=== PATIENT | male | born 1945 | race Caucasian/White ===

== ENCOUNTER 2016-12-11 11:30 | Inpatient (IN) | payer MEDICARE ==
--- NOTE | 2016-12-11 12:34 | PDOC ---
History of Present Illness - General Chief Complaint: Back Pain Stated Complaint: BACK PAIN Time Seen by Provider: 12/11/16 12:12 History Source: Patient Exam Limitations: No Limitations - History of Present Illness Initial Comments: 12/11/16 12:30 71-year-old male presents to the emergency room with complaints of abdominal distention, hematuria, and shortness of breath with exertion worsening over the past few weeks. Patient states went to Dr. Ramirez as a new patient last week was told to come to the ER today for further evaluation. Patient states has history of cirrhosis with hepatitis as per Dr. Fitzpatrick 7 years ago but did not follow-up since then and continues to drink approximately 3-8 beers on a daily basis. Patient also states is a smoker but denies history of drug use. Patient denies chest pain, shortness of breath at rest, orthopnea, diarrhea, rectal bleeding, dysuria, or rash. Patient does state mild leg edema but denies leg pain. Timing/Duration: getting worse Severity: moderate Associated Symptoms: reports: shortness of breath Past History - Past Medical History Allergies/Adverse Reactions: Allergies Allergy/AdvReac Type Severity Reaction Status Date / Time No Known Allergies Allergy Verified 12/11/16 11:40 Home Medications: Ambulatory Orders NK [No Known Home Medication] 12/11/16 Liver Disease: Yes (cirrhosis, hepatitis) Other medical history: denie - Immunization History Immunization Up to Date: No - Psycho/Social/Smoking Cessation Hx Anxiety: No Suicidal Ideation: No Smoking History: Current every day smoker Have you smoked in the past 12 months: Yes Number of Cigarettes Smoked Daily: 2 Information on smoking cessation initiated: No Hx Alcohol Use: Yes Drug/Substance Use Hx: No Substance Use Type: Alcohol Patient Lives Alone: No Lives with/in: spouse/SO Review of Systems - Review of Systems Able to Perform ROS?: Yes Constitutional: Yes: Loss of Appetite HEENTM: No: Symptoms Reported Respiratory: Yes: SOB with Exertion. No: Orthopnea, Wheezing, Hemoptysis Cardiac (ROS): No: Symptoms Reported ABD/GI: Yes: Abdominal Distended : Yes: Hematuria. No: Dysuria, Discharge, Flank Pain Musculoskeletal: Yes: Back Pain (lumbar) Integumentary: No: Symptoms Reported Neurological: No: Symptoms reported Endocrine: No: Symptoms Reported Hematologic/Lymphatic: No: Symptoms Reported *Physical Exam - Vital Signs Last Vital Signs Temp Pulse Resp BP Pulse Ox 97.8 F 95 H 20 144/87 97 12/11/16 11:40 12/11/16 11:40 12/11/16 11:40 12/11/16 11:40 12/11/16 11:40 - Physical Exam General Appearance: Yes: Nourished, Appropriately Dressed. No: Apparent Distress HEENT: positive: EOMI, TEJ, TMs Normal, Pharynx Normal. negative: Scleral Icterus (R), Scleral Icterus (L) Neck: positive: Normal Thyroid, Supple Respiratory/Chest: positive: Lungs Clear, Normal Breath Sounds. negative: Respiratory Distress, Accessory Muscle Use Cardiovascular: positive: Regular Rhythm, Regular Rate. negative: Murmur Gastrointestinal/Abdominal: positive: Normal Bowel Sounds, Soft, Distended (No fluid wave but rigid), Hernia (small umbilical). negative: Organomegaly ( unable to palpate secondary to ascites), Rebound, Tenderness Male Genitalia: positive: normal genitalia Musculoskeletal: positive: Vertebral Tenderness (bilateral paraspinous at L3 level). negative: CVA Tenderness Extremity: positive: Normal Capillary Refill, Pedal Edema (1+ bilateral) Integumentary: positive: Normal Color, Warm, Moist. negative: Jaundice Neurologic: positive: Motor Strength 5/5 (ambulatory) ED Treatment Course - LABORATORY CBC & Chemistry Diagram: 12/21/16 06:30 12/21/16 06:30 - RADIOLOGY Radiology Studies Ordered: Category Date Time Status ABDOMEN & PELVIS CT W/O CONTR [CT] Stat CT Scan 12/11/16 12:28 Ordered CHEST X-RAY PORTABLE* [RAD] Stat Radiology 12/11/16 12:21 Ordered PELVIC / BLADDER US [US] Stat Ultrasound 12/11/16 12:21 Ordered Medical Decision Making - Medical Decision Making 12/11/16 12:35 Patient with recommendations to come to the of for further evaluation. Patient with noted ascites and abdominal distention. On exam with complaints of hematuria and low back pain. Patient ordered for full work up including a bladder ultrasound, CT of the abdomen with po contrast hepatitis profile, and type and screen. 12/11/16 15:23 CT shows multiple with heterogenous activation lobulated contour and large amount of ascites consistent with liver cirrhosis. Ill-defined focal low attenuation density in the right hepatic lobe measuring 5.9 cm is very suspicious for mass versus malignancy primary versus secondary. Further evaluation is recommended. Multiple gallstones. Mild thickening of some of the small bowel loops likely due to surrounding large amount of ascites. Lipase was added. Patient ultrasound was limited due to completely empty bladder. Patient will receive fluids and go for repeat ultrasound to rule out etiology of hematuria Since CT was unable to rule out bladder mass/abnormality. 12/11/16 16:07 Laboratory Tests 12/11/16 12/11/16 12/11/16 12:47 12:47 12:47 WBC 3.5 L Hgb 15.4 Hct 45.7 MCV 99.5 H Plt Count 134 Neutrophils % 66.9 Lymphocytes % 17.3 Monocytes % 12.6 H INR Sodium 138 Potassium 3.8 Chloride 103 Carbon Dioxide 26 Anion Gap 9 BUN 12 Creatinine 0.7 Creat Clearance w eGFR > 60 Random Glucose 105 Calcium 9.0 Total Bilirubin 4.0 H AST 63 H ALT 46 Alkaline Phosphatase 276 H Creatine Kinase Troponin I Total Protein 7.7 Albumin 2.9 L Lipase 255 Urine Protein Urine Ketones Urine Nitrite Ur Leukocyte Esterase Urine RBC Urine WBC Blood Type A POSITIVE 12/11/16 12/11/16 12/11/16 12:47 12:47 12:47 WBC Hgb Hct MCV Plt Count Neutrophils % Lymphocytes % Monocytes % INR 1.36 H Sodium Potassium Chloride Carbon Dioxide Anion Gap BUN Creatinine Creat Clearance w eGFR Random Glucose Calcium Total Bilirubin AST ALT Alkaline Phosphatase Creatine Kinase 78 Troponin I < 0.02 Total Protein Albumin Lipase Urine Protein 1+ H Urine Ketones Trace H Urine Nitrite Negative Ur Leukocyte Esterase Negative Urine RBC 16 Urine WBC 2 Blood Type Case discussed with Dr. Turner medicine clinical education consultant for Dr. Ramirez who states admitted to [facility] and to consult Dr. Fitzpatrick from GI. 12/11/16 18:31 Bladder ultrasound shows no obvious intrinsic or extrinsic sonographic abnormality. There is mild prostate enlargement. There is a large amount of ascites is seen within the partially imaged lower pelvis. 12/11/16 18:[address] Fitzpatrick who will consult tomorrow *DC/Admit/Observation/Transfer Diagnosis at time of Disposition: Liver mass, Hematuria, Alcohol abuse Ascites Qualifiers: Ascites type: due to alcoholic hepatitis Qualified Code(s): K70.11 - Alcoholic hepatitis with ascites Cirrhosis Qualifiers: Hepatic cirrhosis type: alcoholic cirrhosis Ascites presence: with ascites Qualified Code(s): K70.31 - Alcoholic cirrhosis of liver with ascites - Discharge Dispostion Admit: Yes
[2016-12-11 13:20] LABS: BASOPHIL 0.8 % (0-2.0); EOSINOPHIL 2.4 % (0-4.5); MCH 33.5 pg (25.7-33.7); MCHC 33.7 g/dl (32.0-35.9); MEAN CELL VOLUME 99.5 fl (80-96); NEUTROPHILS 66.9 % (42.8-82.8); PLATELET COUNT 134 K/MM3 (134-434); WHITE BLOOD COUNT 3.5 K/mm3 (4.0-10.0)
[2016-12-11 13:34] LABS: INR 1.36 (0.82-1.09)
[2016-12-11 13:40] LABS: ALBUMIN 2.9 g/dl (3.4-5.0); ANION GAP 9 (8-16); CO2 26 mmol/L (21-32); CREATININE 0.7 mg/dL (0.7-1.3); GLUCOSE,RANDOM 105 mg/dL (74-106); SGOT/AST 63 U/L (15-37); SGPT/ALT 46 U/L (12-78); TOT PROT 7.7 g/dl (6.4-8.2)
[2016-12-11 13:41] LABS: ALK PHOS 276 U/L (45-117)
[2016-12-11 13:51] LABS: TROPONIN I < 0.02 ng/ml (0.00-0.05)
[2016-12-11 14:16] LABS: URINE APPEARANCE CLEAR; URINE BLOOD NEGATIVE (NEGATIVE); URINE COLOR AMBER; URINE GLUCOSE (UA) NEGATIVE (NEGATIVE); URINE KETONE TRACE (NEGATIVE); URINE LEUK ESTERASE NEGATIVE (NEGATIVE); URINE NITRITE NEGATIVE (NEGATIVE); URINE UROBILINOGEN 4.0 E.U/dl E.U./dl (0.2-1.0)
[2016-12-11 14:17] LABS: URINE PROTEIN 1+ (NEGATIVE)
[2016-12-11 14:20] LABS: CALCIUM OXALATE CRYSTALS RARE /hpf (NONE SEEN); URINE HYALINE CAST 3 /lpf; URINE MUCUS MANY; URINE RBC 16 /hpf (0-3); URINE WBC 2 /hpf (3-5)
--- NOTE | 2016-12-11 16:08 | EKG ---
Test Reason : Blood Pressure : / mmHG Vent. Rate : 079 BPM Atrial Rate : 079 BPM P-R Int : 000 ms QRS Dur : 086 ms QT Int : 394 ms P-R-T Axes : 065 -04 -15 degrees QTc Int : 451 ms SINUS RHYTHM WITH PREMATURE ATRIAL COMPLEXES NONSPECIFIC T WAVE ABNORMALITY ABNORMAL ECG WHEN COMPARED WITH ECG OF 15-MAY-2007 23:14, T WAVE VARIATION Confirmed by TJ ROLAND MD ([id number]) on 12/11/2016 4:08:18 PM Referred By: Confirmed By:TJ ROLAND MD
--- NOTE | 2016-12-11 20:19 | CONSULT ---
Consult Consult Specialty:: GI Referred by:: Dr Ramirez Reason for Consultation:: Ascites - History of Present Illness Chief Complaint: Ascites with respiratory distress History of Present Illness: 71 M with protracted history of ETOH abuse. His [id number] states he also has hep C. He is admitted now with tense ascites and a CT showing a liver mass that is likely HCC. - History Source History Provided By: Family Member ([id number] whi is fully bilingual) Limitations to Obtaining History: No Limitations - Alcohol/Substance Use Hx Alcohol Use: Yes (8 beers per day) - Smoking History Smoking history: Current every day smoker Have you smoked in the past 12 months: Yes Aproximately how many cigarettes per day: 2 Home Medications - Allergies Allergies/Adverse Reactions: Allergies Allergy/AdvReac Type Severity Reaction Status Date / Time No Known Allergies Allergy Verified 12/11/16 11:40 - Home Medications Home Medications: Ambulatory Orders NK [No Known Home Medication] 12/11/16 Physical Exam-GI Vital Signs: Vital Signs Temperature 97.8 F 12/11/16 11:40 Pulse Rate 84 12/11/16 20:12 Respiratory Rate 18 12/11/16 20:12 Blood Pressure 136/82 12/11/16 20:12 O2 Sat by Pulse Oximetry (%) 98 12/11/16 20:12 Constitutional: Yes: Cachectic HENT: Yes: Normocephalic Neck: Yes: Supple Cardiovascular: Yes: Pulse Irregular (APC's on ECG) Respiratory: Yes: CTA Bilaterally Gastrointestinal Inspection: Yes: Distention ...Auscultate: Yes: Normoactive Bowel Sounds ...Palpate: Yes: Firm/Rigid. 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 Needs paracentesis to relieve respiratory embarrassment. Needs w/u of liver lesion. Tri-phase MRI ordered as well as AFP Will need detox protocol Will need definitive medical management of his ESLD including B-panfilo (likely COPD in this current every-day smoker so may not be possible) , diuretic therapy and meds to prevent encephalopathy.
[2016-12-11] MEDS ORDERED: LACTULOSE 20 GM/30 ML UDC (FOR ORAL USE ONLY) PO PRN (20:31)
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
[2016-12-11 21:51] VITALS: BMI 26.5
[2016-12-11] MEDS ORDERED: HYDROmorphone HCL 2 MG TABLET PO PRN (22:05)
[2016-12-11] MEDS: SPIRONOLACTONE 25 MG TABLET (FP) PO SCH (22:18)
[2016-12-11] MEDS: LACTULOSE 20 GM/30 ML UDC (FOR ORAL USE ONLY) PO SCH (22:18)
[2016-12-11] MEDS: FUROSEMIDE 40 MG/4 ML INJECTABLE VIAL IVPUSH SCH (22:18)
[2016-12-11] MEDS: RIFAXIMIN 550 MG TABLET (UD) PO SCH (22:18)
[2016-12-11] MEDS: ALBUMIN HUMAN 25% 100 ML VIAL IVPB SCH ×3 (22:19→23:20)
[2016-12-12] MEDS: chlordiazePOXIDE HCL 25 MG CAPSULE PO SCH ×5 (00:24→22:00)
[2016-12-12 08:07] LABS: MCH 34.1 pg (25.7-33.7); MCHC 34.6 g/dl (32.0-35.9); MEAN CELL VOLUME 98.5 fl (80-96); MEAN PLT VOLUME 10.2 fl (7.5-11.1); PLATELET COUNT 94 K/MM3 (134-434); RDW 14.7 % (11.9-15.9); WHITE BLOOD COUNT 3.6 K/mm3 (4.0-10.0)
[2016-12-12 08:29] LABS: ALK PHOS 183 U/L (45-117); ANION GAP 9 (8-16); CALCIUM 7.9 mg/dL (8.5-10.1); CO2 26 mmol/L (21-32); CREATININE 0.6 mg/dL (0.7-1.3); GLUCOSE,RANDOM 81 mg/dL (74-106); SGOT/AST 39 U/L (15-37); SGPT/ALT 31 U/L (12-78); TOT PROT 6.1 g/dl (6.4-8.2)
[2016-12-12] MEDS: RIFAXIMIN 550 MG TABLET (UD) PO SCH ×2 (09:34→21:43)
[2016-12-12] MEDS: LACTULOSE 20 GM/30 ML UDC (FOR ORAL USE ONLY) PO SCH ×2 (09:34→21:43)
[2016-12-12] MEDS: SPIRONOLACTONE 25 MG TABLET (FP) PO SCH (09:34)
[2016-12-12] MEDS: FUROSEMIDE 40 MG/4 ML INJECTABLE VIAL IVPUSH SCH (09:35)
[2016-12-12 12:08] LABS: BILIRUBIN,DIRECT 0.3 mg/dL (0.0-0.2); BILIRUBIN,TOTAL 0.7 mg/dL (0.2-1.0); SGOT/AST 9 U/L (15-37); SGPT/ALT < 6 U/L (12-78)
[2016-12-12 14:29] LABS: PERITONEAL FLUID HISTIOCYTE 74 %; PERITONEAL FLUID LYMPHOCYTE 18 %; PERITONEAL FLUID MESOTHELIAL 8 %
[2016-12-12] MEDS ORDERED: chlordiazePOXIDE HCL 25 MG CAPSULE PO PRN (17:43)
--- NOTE | 2016-12-12 17:50 | CONSULT ---
Consult Detox [facility] Reason for Current Admission/Consult: alcohol withdrawal sx. Referred by:: Bunny Turner MD - History History of Present Illness: 71 y/o man with a long hx. of alcoholism is admitted with ascites. Pt. was diagnosed with cirrhosis of the liver 7 yrs ago but did not follow with medical care as suggested by primary care. His son & tell me that he shakes when he does not drinking. - History Source History Provided By: Patient Limitations to Obtaining History: No Limitations - Alcohol/Substance Use Hx Alcohol Use: Yes (8 beers per day) - Current Drug/Alcohol Use Alcohol Route: Oral Frequency: Daily Amount used: beer 1(6pack) Age of first use: 14 Date of Last Use: 12/11/16 - Past Medical History Gastrointestinal: Yes: Ascites Hepatobiliary: Yes: Cirrhosis, Hepatitis C Renal/: Yes: Hematuria - Significant Medical Findings: Laboratory Tests 12/11/16 12/11/16 12/11/16 12:47 12:47 12:47 WBC 3.5 L RBC 4.59 Hgb 15.4 Hct 45.7 MCV 99.5 H MCHC 33.7 RDW 15.0 Plt Count 134 MPV 10.0 Neutrophils % 66.9 Lymphocytes % 17.3 Monocytes % 12.6 H Eosinophils % 2.4 Basophils % 0.8 INR Sodium 138 Potassium 3.8 Chloride 103 Carbon Dioxide 26 Anion Gap 9 BUN 12 Creatinine 0.7 Creat Clearance w eGFR > 60 Random Glucose 105 Calcium 9.0 Total Bilirubin 4.0 H Direct Bilirubin AST 63 H ALT 46 Alkaline Phosphatase 276 H Ammonia Creatine Kinase Troponin I Total Protein 7.7 Albumin 2.9 L Lipase 255 Urine Color Urine Appearance Urine pH Ur Specific [place] Urine Protein Urine Glucose (UA) Urine Ketones Urine Blood Urine Nitrite Urine Bilirubin Urine Urobilinogen Ur Leukocyte Esterase Urine RBC Urine WBC Ur Epithelial Cells Calcium Oxalate Crystal Hyaline Casts Urine Mucus Peritoneal WBC Peritoneal RBC Periton Neutrophils Periton Lymphocytes Periton Mesothelial Periton Histiocytes Peritoneal Tot Protein Peritoneal Albumin Peritoneal LDH Peritoneal Glucose Peritoneal Amylase Peritoneal Cholesterol Hepatitis A IgM Ab Hep Bs Antigen Hep B Core IgM Ab Hepatitis C Antibody Blood Type A POSITIVE Antibody Screen Negative Spec Expiration Date 12/11/16 12/11/16 12/11/16 12:47 12:47 12:47 WBC RBC Hgb Hct MCV MCHC RDW Plt Count MPV Neutrophils % Lymphocytes % Monocytes % Eosinophils % Basophils % INR 1.36 H Sodium Potassium Chloride Carbon Dioxide Anion Gap BUN Creatinine Creat Clearance w eGFR Random Glucose Calcium Total Bilirubin Direct Bilirubin AST ALT Alkaline Phosphatase Ammonia 19.8 Creatine Kinase Troponin I Total Protein Albumin Lipase Urine Color Unique Urine Appearance Clear Urine pH 5.0 Ur Specific [place] 1.031 Urine Protein 1+ H Urine Glucose (UA) Negative Urine Ketones Trace H Urine Blood Negative Urine Nitrite Negative Urine Bilirubin 2.0 Urine Urobilinogen 4.0 e.u/dl Ur Leukocyte Esterase Negative Urine RBC 16 Urine WBC 2 Ur Epithelial Cells Rare Calcium Oxalate Crystal Rare Hyaline Casts 3 Urine Mucus Many Peritoneal WBC Peritoneal RBC Periton Neutrophils Periton Lymphocytes Periton Mesothelial Periton Histiocytes Peritoneal Tot Protein Peritoneal Albumin Peritoneal LDH Peritoneal Glucose Peritoneal Amylase Peritoneal Cholesterol Hepatitis A IgM Ab Hep Bs Antigen Hep B Core IgM Ab Hepatitis C Antibody Blood Type Antibody Screen Spec Expiration Date 12/11/16 12/11/16 12/12/16 12:47 12:47 06:30 WBC 3.6 L RBC 3.46 L D Hgb 11.8 D Hct 34.1 L D MCV 98.5 H MCHC 34.6 RDW 14.7 Plt Count 94 L D MPV 10.2 Neutrophils % Lymphocytes % Monocytes % Eosinophils % Basophils % INR Sodium Potassium Chloride Carbon Dioxide Anion Gap BUN Creatinine Creat Clearance w eGFR Random Glucose Calcium Total Bilirubin Direct Bilirubin AST ALT Alkaline Phosphatase Ammonia Creatine Kinase 78 Troponin I < 0.02 Total Protein Albumin Lipase Urine Color Urine Appearance Urine pH Ur Specific [place] Urine Protein Urine Glucose (UA) Urine Ketones Urine Blood Urine Nitrite Urine Bilirubin Urine Urobilinogen Ur Leukocyte Esterase Urine RBC Urine WBC Ur Epithelial Cells Calcium Oxalate Crystal Hyaline Casts Urine Mucus Peritoneal WBC Peritoneal RBC Periton Neutrophils Periton Lymphocytes Periton Mesothelial Periton Histiocytes Peritoneal Tot Protein Peritoneal Albumin Peritoneal LDH Peritoneal Glucose Peritoneal Amylase Peritoneal Cholesterol Hepatitis A IgM Ab Negative Hep Bs Antigen Negative Hep B Core IgM Ab Negative Hepatitis C Antibody 0.1 Blood Type Antibody Screen Spec Expiration Date 12/12/16 12/12/16 12/12/16 06:30 11:00 11:00 WBC RBC Hgb Hct MCV MCHC RDW Plt Count MPV Neutrophils % Lymphocytes % Monocytes % Eosinophils % Basophils % INR Sodium 140 Potassium 3.6 Chloride 105 Carbon Dioxide 26 Anion Gap 9 BUN 10 Creatinine 0.6 L Creat Clearance w eGFR > 60 Random Glucose 81 D Calcium 7.9 L Total Bilirubin 4.0 H 0.7 D Direct Bilirubin 0.3 H AST 39 H D 9 L D ALT 31 D < 6 L D Alkaline Phosphatase 183 H D Ammonia Creatine Kinase Troponin I Total Protein 6.1 L D Albumin 3.0 L Lipase Urine Color Urine Appearance Urine pH Ur Specific [place] Urine Protein Urine Glucose (UA) Urine Ketones Urine Blood Urine Nitrite Urine Bilirubin Urine Urobilinogen Ur Leukocyte Esterase Urine RBC Urine WBC Ur Epithelial Cells Calcium Oxalate Crystal Hyaline Casts Urine Mucus Peritoneal WBC 193 Peritoneal RBC 640 Periton Neutrophils Y Periton Lymphocytes 18 Periton Mesothelial 8 Periton Histiocytes 74 Peritoneal Tot Protein 1 Peritoneal Albumin 1 Peritoneal LDH 34 Peritoneal Glucose 102 Peritoneal Amylase 18 Peritoneal Cholesterol < 50 Hepatitis A IgM Ab Hep Bs Antigen Hep B Core IgM Ab Hepatitis C Antibody Blood Type Antibody Screen Spec Expiration Date labs noted CIWA Score - CIWA Score Nausea/Vomitin Muscle Tremors: 4-Moderate,w/Arms Extend Anxiety: 3 Agitation: 3 Paroxysmal Sweats: 3 Orientation: 0-Oriented Tacttile Disturbances: 1-Very Mild Itch/Numbness Auditory Disturbances: 0-None Visual Disturbances: 0-None Headache: 0-None Present CIWA-Ar Total Score: 16 Assessment Plan - Diagnosis (1) Ascites Status: Acute Qualifiers: Ascites type: due to alcoholic hepatitis Qualified Code(s): K70.11 - Alcoholic hepatitis with ascites (2) Cirrhosis Status: Acute Qualifiers: Hepatic cirrhosis type: alcoholic cirrhosis Ascites presence: with ascites Qualified Code(s): K70.31 - Alcoholic cirrhosis of liver with ascites (3) Alcohol dependence with uncomplicated withdrawal Status: Acute - Plan Plan: Detox with librium and regular F/U with Dr. Fitzpatrick - Medication Detox Regimen/Protocol: Librium
--- NOTE | 2016-12-12 21:18 | PN ---
Progress Note (short form) - Note Progress Note: hep c cirrhosis acute decompensated ascites alcoholic liver disease detox consult appreciated Current Medications Chlordiazepoxide HCl (Librium -) 25 mg PO Q4H PRN PRN Reason: WITHDRAWAL(CONT SUBST) Stop: 12/15/16 17:42 Chlordiazepoxide HCl (Librium -) 25 mg PO [id number] [facility] Stop: 12/13/16 17:01 Chlordiazepoxide HCl (Librium -) 20 mg PO [id number] [facility] Stop: 12/14/16 17:01 Chlordiazepoxide HCl (Librium -) 15 mg PO [id number] [facility] Stop: 12/15/16 17:01 Furosemide (Lasix Injection -) 40 mg IVPUSH DAILY [facility] Last Admin: 12/12/16 09:35 Dose: 40 mg Hydromorphone HCl (Dilaudid -) 2 mg PO Q8H PRN PRN Reason: PAIN Lactulose (Cephulac (Oral Use)) 20 gm PO BID [facility] Last Admin: 12/12/16 09:34 Dose: 20 gm Rifaximin (Xifaxan -) 550 mg PO BID [facility] Last Admin: 12/12/16 09:34 Dose: 550 mg Spironolactone (Aldactone -) 50 mg PO DAILY [facility] Last Admin: 12/12/16 09:34 Dose: 50 mg Last Vital Signs Temp Pulse Resp BP Pulse Ox 98.7 F 82 20 107/68 96 12/12/16 17:29 12/12/16 17:29 12/12/16 17:29 12/12/16 17:29 12/12/16 09:00 lungs clear heart reg rate and rhythm abd soft nontender ext no edema CBC, BMP 12/12/16 06:30 12/12/16 06:30 Abnormal Lab Results 12/12/16 12/12/16 12/12/16 06:30 06:30 11:00 WBC 3.6 L RBC 3.46 L D Hct 34.1 L D MCV 98.5 H Plt Count 94 L D Creatinine 0.6 L Calcium 7.9 L Total Bilirubin 4.0 H Direct Bilirubin 0.3 H AST 39 H D 9 L D ALT < 6 L D Alkaline Phosphatase 183 H D Total Protein 6.1 L D Albumin 3.0 L IMP- r/o hepatoma cea pending mri pending Plan- await remainder of w/u pain meds prn detox
[2016-12-13] MEDS: chlordiazePOXIDE HCL 25 MG CAPSULE PO SCH ×3 (05:00→16:59)
[2016-12-13] MEDS: LACTULOSE 20 GM/30 ML UDC (FOR ORAL USE ONLY) PO SCH ×2 (09:25→22:09)
[2016-12-13] MEDS: RIFAXIMIN 550 MG TABLET (UD) PO SCH ×2 (09:25→22:10)
[2016-12-13] MEDS: FUROSEMIDE 40 MG/4 ML INJECTABLE VIAL IVPUSH SCH (09:58)
[2016-12-13] MEDS: SPIRONOLACTONE 25 MG TABLET (FP) PO SCH (09:58)
--- NOTE | 2016-12-13 13:19 | PATH ---
Cytology Non-Gynecological Report Patient Name: KEYLA CARREON [facility]. Rec. #: [id number] /Age/Gender: 1945 (Age: 71) / M Account: [id number] Location: [facility] MED/SURG Taken: 12/12/2016 Received: 12/12/2016 Reported: 12/13/2016 Physicians: Lois Duenas M.D. Specimen(s) Received A: ABDOMINAL FLUID RLQ IN 50% ALCOHOL B: ABDOMINAL FLUID RLQ FRESH Clinical History Ascites Final Diagnosis A,B. ABDOMINAL FLUID, RLQ, PARACENTESIS: SATISFACTORY FOR EVALUATION. NO MALIGNANT CELLS IDENTIFIED. REACTIVE MESOTHELIAL CELLS, HISTIOCYTES AND LYMPHOCYTES. Electronically Signed Husam Black M.D. Gross Description A. Received is a 50 cc of yellow fluid in 50% alcohol. One cytofunnel slide and one cell block are made. B. Received is 7000 cc of yellow fluid fresh. One cytofunnel slide and one cell block are made.
--- NOTE | 2016-12-13 21:36 | PN ---
Progress Note (short form) - Note Progress Note: s/p low bp- lasix held hep c cirrhosis acute decompensated ascites alcoholic liver disease gross hematuria and left flank pain detox consult appreciated Current Medications Chlordiazepoxide HCl (Librium -) 25 mg PO Q4H PRN PRN Reason: WITHDRAWAL(CONT SUBST) Stop: 12/15/16 17:42 Chlordiazepoxide HCl (Librium -) 20 mg PO [id number] [facility] Stop: 12/14/16 17:01 Chlordiazepoxide HCl (Librium -) 15 mg PO [id number] [facility] Stop: 12/15/16 17:01 Furosemide (Lasix Injection -) 40 mg IVPUSH DAILY [facility] Last Admin: 12/13/16 09:58 Dose: Not Given Hydromorphone HCl (Dilaudid -) 2 mg PO Q8H PRN PRN Reason: PAIN Lactulose (Cephulac (Oral Use)) 20 gm PO BID [facility] Last Admin: 12/13/16 09:25 Dose: 20 gm Rifaximin (Xifaxan -) 550 mg PO BID [facility] Last Admin: 12/13/16 09:25 Dose: 550 mg Spironolactone (Aldactone -) 50 mg PO DAILY [facility] Last Admin: 12/13/16 09:58 Dose: Not Given Last Vital Signs Temp Pulse Resp BP Pulse Ox 97.8 F 75 18 104/64 95 12/13/16 18:00 12/13/16 18:00 12/13/16 18:00 12/13/16 18:00 12/13/16 09:00 lungs clear heart reg rate and rhythm abd soft nontender ext no edema CBC, BMP 12/12/16 06:30 12/12/16 06:30 Abnormal Lab Results 12/12/16 12/12/16 12/12/16 06:30 06:30 11:00 WBC 3.6 L RBC 3.46 L D Hct 34.1 L D MCV 98.5 H Plt Count 94 L D Creatinine 0.6 L Calcium 7.9 L Total Bilirubin 4.0 H Direct Bilirubin 0.3 H AST 39 H D 9 L D ALT < 6 L D Alkaline Phosphatase 183 H D Total Protein 6.1 L D Albumin 3.0 L IMP- acute increased ascites underlying severe liver cirrhosis multiple masses right lobe of liver by mri afp 2.1 ! probable hepatocellular ca Plan- GI f/u re: biopsy of hepatic masses and post discharge planning for further management pain meds prn detox
[2016-12-13] MEDS: chlordiazePOXIDE 5 MG CAPSULE PO SCH (22:09)
[2016-12-14] MEDS: chlordiazePOXIDE 5 MG CAPSULE PO SCH ×3 (05:21→17:34)
[2016-12-14 08:16] LABS: MCHC 34.3 g/dl (32.0-35.9); MEAN CELL VOLUME 99.1 fl (80-96); MEAN PLT VOLUME 10.2 fl (7.5-11.1); PLATELET COUNT 107 K/MM3 (134-434); RDW 15.2 % (11.9-15.9); WHITE BLOOD COUNT 5.1 K/mm3 (4.0-10.0)
[2016-12-14 08:27] LABS: INR 1.5 (0.82-1.09); PROTHROMBIN TIME (PATIENT) 16.6 SEC (9.98-11.88)
[2016-12-14 08:42] LABS: ALBUMIN 2.5 g/dl (3.4-5.0); ANION GAP 6 (8-16); CALCIUM 8.6 mg/dL (8.5-10.1); CO2 27 mmol/L (21-32); CREATININE 0.6 mg/dL (0.7-1.3); GLUCOSE,RANDOM 100 mg/dL (74-106); SGOT/AST 50 U/L (15-37); SGPT/ALT 38 U/L (12-78)
[2016-12-14 08:44] LABS: ALK PHOS 194 U/L (45-117); BILIRUBIN,TOTAL 1.8 mg/dL (0.2-1.0); TOT PROT 5.9 g/dl (6.4-8.2)
[2016-12-14] MEDS: LACTULOSE 20 GM/30 ML UDC (FOR ORAL USE ONLY) PO SCH ×2 (09:52→21:30)
[2016-12-14] MEDS: RIFAXIMIN 550 MG TABLET (UD) PO SCH ×2 (09:53→21:30)
[2016-12-14] MEDS: SPIRONOLACTONE 25 MG TABLET (FP) PO SCH (09:53)
[2016-12-14] MEDS: FUROSEMIDE 40 MG/4 ML INJECTABLE VIAL IVPUSH SCH (09:54)
--- NOTE | 2016-12-14 14:03 | PN ---
Progress Note (short form) - Note Progress Note: hep c cirrhosis acute decompensated ascites alcoholic liver disease detox consult appreciated Current Medications Chlordiazepoxide HCl (Librium -) 25 mg PO Q4H PRN PRN Reason: WITHDRAWAL(CONT SUBST) Stop: 12/15/16 17:42 Chlordiazepoxide HCl (Librium -) 20 mg PO [id number] [facility] Stop: 12/14/16 17:01 Last Admin: 12/14/16 10:48 Dose: 20 mg Chlordiazepoxide HCl (Librium -) 15 mg PO [id number] [facility] Stop: 12/15/16 17:01 Furosemide (Lasix Injection -) 40 mg IVPUSH DAILY [facility] Last Admin: 12/14/16 09:54 Dose: 40 mg Hydromorphone HCl (Dilaudid -) 2 mg PO Q8H PRN PRN Reason: PAIN Lactulose (Cephulac (Oral Use)) 20 gm PO BID [facility] Last Admin: 12/14/16 09:52 Dose: 20 gm Rifaximin (Xifaxan -) 550 mg PO BID [facility] Last Admin: 12/14/16 09:53 Dose: 550 mg Spironolactone (Aldactone -) 50 mg PO DAILY [facility] Last Admin: 12/14/16 09:53 Dose: 50 mg Last Vital Signs Temp Pulse Resp BP Pulse Ox 98.1 F 89 21 110/73 98 12/14/16 08:23 12/14/16 13:20 12/14/16 13:20 12/14/16 13:20 12/14/16 13:20 lungs clear heart reg rate and rhythm abd soft nontender ext no edema CBC, BMP 12/14/16 07:25 12/14/16 07:25 Abnormal Lab Results 12/14/16 12/14/16 12/14/16 07:25 07:25 07:25 RBC 3.90 L MCV 99.1 H Plt Count 107 L INR 1.50 H Anion Gap 6 L Creatinine 0.6 L Total Bilirubin 1.8 H D AST 50 H D Alkaline Phosphatase 194 H Total Protein 5.9 L Albumin 2.5 L IMP- alcoholic cirrhosis ascites liver masses on mri +lymphadenopathy Plan- await gi f/u pain meds prn continue detox
--- NOTE | 2016-12-14 14:49 | CONSULT ---
Consult Consult Specialty:: Oncology-Hematology Referred by:: Dr. Bunny Turner Reason for Consultation:: Ascites and liver mass - History Source History Provided By: Patient Limitations to Obtaining History: Other (Daughter -ADA interpreted) - Past Medical History Gastrointestinal: Yes: Ascites Hepatobiliary: Yes: Cirrhosis, Hepatitis C Renal/: Yes: Hematuria Musculoskeletal: Yes: Chronic low back pain - Alcohol/Substance Use Hx Alcohol Use: Yes (variable beer from 2- 10+ daily) History of Substance Use: reports: None - Smoking History Smoking history: Current every day smoker Have you smoked in the past 12 months: Yes Aproximately how many cigarettes per day: 2 - Social History Usual Living Arrangement: With Spouse 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 Loss Eyes: denies: Blurred Vision, Double Vision HENT: denies: No Symptoms, Difficult Swallowing, Nasal Congestion Neck: denies: Swollen Glands, Tenderness Cardiovascular: denies: Palpitations, Shortness of Breath Respiratory: denies: SOB, SOB on Exertion, Wheezing Gastrointestinal: reports: Abdominal Pain. denies: Constipation, Diarrhea, Dysphagia, Melena, Nausea, Rectal Bleeding, Vomiting Genitourinary: reports: Burning Musculoskeletal: reports: Back Pain Integumentary: denies: Bruising, Eczema, Rash Neurological: reports: No Symptoms Endocrine: reports: No Symptoms Hematology/Lymphatic: denies: Easily Bruised, Excessive Bleeding, Swollen Glands Psychiatric: reports: No Symptoms Physical Exam Vital Signs: Vital Signs Temperature 98.1 F 12/14/16 08:23 Pulse Rate 86 12/14/16 13:35 Respiratory Rate 19 12/14/16 13:35 Blood Pressure 112/79 12/14/16 13:35 O2 Sat by Pulse Oximetry (%) 98 12/14/16 13:35 Constitutional: Yes: No Distress Eyes: Yes: PERRL. No: Ptosis HENT: Yes: Atraumatic, Normocephalic. No: Epistaxis, Rhinnorhea, Tonsillar Exudate Neck: Yes: Supple, Trachea Midline. No: Lymphadenopathy, Tenderness, Thyromegaly Cardiovascular: Yes: Regular Rate and Rhythm Respiratory: Yes: Diminished, Rales Gastrointestinal: Yes: Ascites Renal/: Yes: Other (Serrano catheter , uncircumcised male; testes descended). No: CVA Tenderness - Left, CVA Tenderness - Right Musculoskeletal: Yes: Back Pain Extremities: No: Calf Tenderness, Cool, Cyanosis Edema: No Integumentary: No: Erythema, Jaundice, Rash Neurological: Yes: WNL ...Motor Strength: WNL Psychiatric: Yes: WNL Labs: CBC, BMP 12/14/16 07:25 12/14/16 07:25 Imaging - Results Ultrasound: Report Reviewed MRI: Report Reviewed Problem List - Problems (1) Liver mass Code(s): R16.0 - HEPATOMEGALY, NOT ELSEWHERE CLASSIFIED (2) Hematuria Code(s): R31.9 - HEMATURIA, UNSPECIFIED (3) Cirrhosis Code(s): K74.60 - UNSPECIFIED CIRRHOSIS OF LIVER Qualifiers: Hepatic cirrhosis type: alcoholic cirrhosis Ascites presence: with ascites Qualified Code(s): K70.31 - Alcoholic cirrhosis of liver with ascites (4) Ascites Code(s): R18.8 - OTHER ASCITES Qualifiers: Ascites type: due to alcoholic hepatitis Qualified Code(s): K70.11 - Alcoholic hepatitis with ascites (5) Alcohol abuse Code(s): F10.10 - ALCOHOL ABUSE, UNCOMPLICATED (6) Hepatitis C Code(s): B19.20 - UNSPECIFIED VIRAL HEPATITIS C WITHOUT HEPATIC COMA Assessment/Plan Conglomerate mass on MRI suspicious for HCC. Past history of hepatitis C without prior therapy. Beer drinker of 2-10+ cans per day x years. Contracted irregular liver with splenomegaly compatible with cirrhosis and portal hypertension seen on imaging. AFP pending. To have drainage of ascites and then liver biopsy. Has serrano catheter with dysuria. For C & S. Has leukopenia -?? secondary to portal hypertension with hypersplenism or direct toxic effect of alcohol . For screening tests.
[2016-12-14] MEDS ORDERED: PT OWN MED DRAWER 7, Y5N ONE (18:28)
[2016-12-15] MEDS: chlordiazePOXIDE 5 MG CAPSULE PO SCH ×4 (02:10→17:12)
[2016-12-15 07:45] LABS: BASOPHIL 0.5 % (0-2.0); EOSINOPHIL 5.9 % (0-4.5); MCH 33.9 pg (25.7-33.7); MCHC 34.2 g/dl (32.0-35.9); MEAN CELL VOLUME 98.9 fl (80-96); NEUTROPHILS 61.6 % (42.8-82.8); PLATELET COUNT 100 K/MM3 (134-434); RDW 14.9 % (11.9-15.9)
[2016-12-15 08:15] LABS: INR 1.47 (0.82-1.09); PROTHROMBIN TIME (PATIENT) 16.3 SEC (9.98-11.88)
[2016-12-15 08:19] LABS: ACTIVATED PTT 36.7 SECONDS (26.9-34.4)
[2016-12-15 08:34] LABS: CALCIUM 7.6 mg/dL (8.5-10.1); CREATININE 0.6 mg/dL (0.7-1.3); SGOT/AST 55 U/L (15-37); SGPT/ALT 43 U/L (12-78)
[2016-12-15 08:36] LABS: ALBUMIN 2.4 g/dl (3.4-5.0); ANION GAP 8 (8-16); CO2 29 mmol/L (21-32); GLUCOSE,RANDOM 92 mg/dL (74-106)
[2016-12-15 08:43] LABS: ALK PHOS 218 U/L (45-117); THYROID STIMULATING HORMONE 1.41 uIU/ml (0.358-3.74)
[2016-12-15] MEDS: SPIRONOLACTONE 25 MG TABLET (FP) PO SCH (09:19)
[2016-12-15] MEDS: RIFAXIMIN 550 MG TABLET (UD) PO SCH ×2 (09:19→22:13)
[2016-12-15] MEDS: LACTULOSE 20 GM/30 ML UDC (FOR ORAL USE ONLY) PO SCH ×2 (09:19→22:13)
[2016-12-15] MEDS: FUROSEMIDE 40 MG/4 ML INJECTABLE VIAL IVPUSH SCH (09:19)
--- NOTE | 2016-12-15 13:11 | PN ---
GI Progress Note Subjective: d/w with Dr Rodas, s/p paracentesis prior to liver biopsy, s/p removal of 7 liters - Objective Vital Signs: Vital Signs Temperature 98.7 F 12/15/16 09:00 Pulse Rate 77 12/15/16 09:00 Respiratory Rate 20 12/15/16 09:00 Blood Pressure 88/58 12/15/16 09:00 O2 Sat by Pulse Oximetry (%) 98 12/15/16 09:00 Constitutional: Well Nourished Eyes: Yes: Conjunctiva Clear HENT: Yes: Atraumatic Neck: Yes: Trachea Midline Cardiovascular: Yes: Regular Rate and Rhythm ...Palpate: Yes: Soft. No: Firm/Rigid, Guarding, Hepatomegaly, Mass, Pulsatile Mass, Splenomegaly, Tenderness Labs: CBC, BMP 12/15/16 06:30 12/15/16 06:30 INR, PTT INR 1.47 (0.82-1.09) H 12/15/16 06:30 Fibrinogen 214.0 mg/dL (238-498) L 12/15/16 06:30 Problem List - Problems (1) Liver mass Assessment/Plan: r/o hepatoma Code(s): R16.0 - HEPATOMEGALY, NOT ELSEWHERE CLASSIFIED (2) Ascites Assessment/Plan: s/p large volume paracentesis R> will need 6 bottles of albumin (12.5 grams) Code(s): R18.8 - OTHER ASCITES Qualifiers: Ascites type: due to alcoholic hepatitis Qualified Code(s): K70.11 - Alcoholic hepatitis with ascites
[2016-12-15] MEDS: ALBUMIN HUMAN 25% 100 ML VIAL IVPB SCH ×4 (14:35→16:45)
--- NOTE | 2016-12-15 14:52 | PN ---
Progress Note (short form) - Note Progress Note: Oncology follow-up note Patient seen and examined at bedside today. He is failry comfortable, able to answer my questions in [place]. He says he has mild pain at the site of the peritoneal catheter insertion which is mild. Last Vital Signs Temp Pulse Resp BP Pulse Ox 98.7 F 77 20 88/58 98 12/15/16 09:00 12/15/16 09:00 12/15/16 09:00 12/15/16 09:00 12/15/16 09:00 Physical Exam PERRLA, EOMI, cachectic CTA (BL) No m/g/r Soft , mildly distended abdomen, peritoneal catheter in RMQ draining clear yellow fluid No c/c/e Nonfocal neuro exam Labs CBC, BMP 12/15/16 06:30 12/15/16 06:30 Current Medications Generic Name Dose Route Start Last Admin Trade Name Freq PRN Reason Stop Dose Admin Chlordiazepoxide HCl 25 mg 12/12/16 17:43 Librium - PO 12/15/16 17:42 Q4H PRN WITHDRAWAL(CONT SUBST) Chlordiazepoxide HCl 15 mg 12/14/16 23:00 12/15/16 10:58 Librium - PO 12/15/16 17:01 15 mg [id number] [facility] Administration Furosemide 40 mg 12/11/16 20:45 12/15/16 09:19 Lasix Injection - IVPUSH 40 mg DAILY [facility] Administration Lactulose 20 gm 12/11/16 20:38 12/15/16 09:19 Cephulac (Oral Use) PO 20 gm BID [facility] Administration Rifaximin 550 mg 12/11/16 22:00 12/15/16 09:19 Xifaxan - PO 550 mg BID [facility] Administration Spironolactone 50 mg 12/11/16 20:45 12/15/16 09:19 Aldactone - PO 50 mg DAILY [facility] Administration A/P : 71 y/o male with Hx of heavy drinking, hepatitis C without prior treatment and a large conglomerate mass in right liver suspicious for HCC. AFP however was not elevated. -Has a peritoneal catheter that continues to drain clear yellow fluid -plan for liver biopsy on Saturday - 12/17, discussed with RN- to keep patient NPO after midnight on saturday night and to administer FFP and 1 unit platelets early Saturday morning. -discussed plan with family at bedside that are on board -need ID inputs on treatment and Mx of Hep C (can be done outpatient also) -continue diuretics, lactulose and rifaximin for treatment of cirrhosis and encephalopathy -Supportive care
--- NOTE | 2016-12-15 21:29 | PN ---
Progress Note (short form) - Note Progress Note: waiting for liver bx on saturday after drainage of ascites hep c cirrhosis acute decompensated ascites alcoholic liver disease detox consult appreciated Current Medications Furosemide (Lasix Injection -) 40 mg IVPUSH DAILY [facility] Last Admin: 12/15/16 09:19 Dose: 40 mg Lactulose (Cephulac (Oral Use)) 20 gm PO BID [facility] Last Admin: 12/15/16 09:19 Dose: 20 gm Rifaximin (Xifaxan -) 550 mg PO BID [facility] Last Admin: 12/15/16 09:19 Dose: 550 mg Spironolactone (Aldactone -) 50 mg PO DAILY [facility] Last Admin: 12/15/16 09:19 Dose: 50 mg Last Vital Signs Temp Pulse Resp BP Pulse Ox 98.5 F 82 20 91/51 98 12/15/16 17:24 12/15/16 17:24 12/15/16 17:24 12/15/16 17:24 12/15/16 09:00 lungs clear heart reg rate and rhythm abd soft nontender ext no edema CBC, BMP 12/15/16 06:30 12/15/16 06:30 IMP- alcoholic cirrhosis ascites liver masses on mri +lymphadenopathy Plan- pain meds prn continue detox
[2016-12-16] MEDS: SPIRONOLACTONE 25 MG TABLET (FP) PO SCH (09:03)
[2016-12-16] MEDS: LACTULOSE 20 GM/30 ML UDC (FOR ORAL USE ONLY) PO SCH ×2 (09:03→21:50)
[2016-12-16] MEDS: FUROSEMIDE 40 MG/4 ML INJECTABLE VIAL IVPUSH SCH (09:03)
[2016-12-16] MEDS: RIFAXIMIN 550 MG TABLET (UD) PO SCH ×2 (09:03→21:50)
--- NOTE | 2016-12-16 12:15 | PN ---
Progress Note (short form) - Note Progress Note: Oncology Follow-up Note S: Patient sleeping comfortably when visited today. He has mild pain at the site of the peritoneal catheter but no other complaints. Last Vital Signs Temp Pulse Resp BP Pulse Ox 98.1 F 64 20 97/60 98 12/16/16 06:59 12/16/16 06:59 12/16/16 11:00 12/16/16 06:59 12/16/16 11:00 Physical Exam PERRLA, EOMI, cachectic CTA (BL) No m/g/r Soft , mildly distended abdomen, peritoneal catheter in RMQ draining clear yellow fluid No c/c/e Nonfocal neuro exam Labs CBC, BMP 12/15/16 06:30 12/15/16 06:30 Current Medications Generic Name Dose Route Start Last Admin Trade Name Freq PRN Reason Stop Dose Admin Furosemide 40 mg 12/11/16 20:45 12/16/16 09:03 Lasix Injection - IVPUSH 40 mg DAILY [facility] Administration Lactulose 20 gm 12/11/16 20:38 12/16/16 09:03 Cephulac (Oral Use) PO 20 gm BID [facility] Administration Rifaximin 550 mg 12/11/16 22:00 12/16/16 09:03 Xifaxan - PO 550 mg BID [facility] Administration Spironolactone 50 mg 12/11/16 20:45 12/16/16 09:03 Aldactone - PO 50 mg DAILY [facility] Administration A/P : 71 y/o male with Hx of heavy drinking, hepatitis C without prior treatment and a large conglomerate mass in right liver suspicious for HCC. AFP however was not elevated. -Has a peritoneal catheter that continues to drain clear yellow fluid -plan for liver biopsy on Saturday - 12/17, discussed with RN- to keep patient NPO after midnight on saturday night and to administer FFP and 1 unit platelets early Saturday morning. FFP and platelets ordered by me today and discussed with . -discussed plan with family at bedside that are on board -need ID inputs on treatment and Mx of Hep C prior to initiation of chemotherapy -continue diuretics, lactulose and rifaximin for treatment of cirrhosis and encephalopathy -Supportive care
--- NOTE | 2016-12-16 20:27 | PN ---
Progress Note (short form) - Note Progress Note: discussed with oncology- recommends ID consult for eval of risks of untreated hep c when and if he starts chemo waiting for liver bx on saturday after drainage of ascites alcoholic and hep c cirrhosis acute decompensated ascites alcoholic liver disease detox consult appreciated lungs clear heart reg rate and rhythm abd soft nontender ext no edema CBC, BMP 12/15/16 06:30 12/15/16 06:30 IMP- alcoholic cirrhosis ascites liver masses on mri +lymphadenopathy h/o hep c never treated Plan- biopsy in am pain meds prn continue detox
[2016-12-17 07:20] LABS: INR 1.48 (0.82-1.09); PROTHROMBIN TIME (PATIENT) 16.4 SEC (9.98-11.88)
[2016-12-17 07:24] LABS: MCH 34.2 pg (25.7-33.7); MCHC 34.8 g/dl (32.0-35.9); MEAN CELL VOLUME 98.4 fl (80-96); MEAN PLT VOLUME 10.7 fl (7.5-11.1); PLATELET COUNT 100 K/MM3 (134-434); RDW 14.8 % (11.9-15.9); WHITE BLOOD COUNT 5.1 K/mm3 (4.0-10.0)
[2016-12-17 08:28] LABS: ALBUMIN 3.4 g/dl (3.4-5.0); ALK PHOS 194 U/L (45-117); ANION GAP 12 (8-16); BILIRUBIN,TOTAL 3.3 mg/dL (0.2-1.0); CALCIUM 9.2 mg/dL (8.5-10.1); CO2 26 mmol/L (21-32); CREATININE 0.8 mg/dL (0.7-1.3); GLUCOSE,RANDOM 100 mg/dL (74-106); SGOT/AST 49 U/L (15-37); SGPT/ALT 39 U/L (12-78); TOT PROT 6.6 g/dl (6.4-8.2)
[2016-12-17] MEDS: LACTULOSE 20 GM/30 ML UDC (FOR ORAL USE ONLY) PO SCH ×2 (09:58→21:46)
[2016-12-17] MEDS: RIFAXIMIN 550 MG TABLET (UD) PO SCH ×2 (09:58→21:46)
[2016-12-17] MEDS: SPIRONOLACTONE 25 MG TABLET (FP) PO SCH (09:58)
[2016-12-17] MEDS: FUROSEMIDE 40 MG/4 ML INJECTABLE VIAL IVPUSH SCH (10:06)
--- NOTE | 2016-12-17 10:31 | PN ---
Progress Note (short form) - Note Progress Note: ID consult dictated imp/reccd 71 year old man with history of cirrhosis- chronic ETOH use, question of hep c by history, found to have ascites and multiple liver masses we are asked to see him for evaluation of HEP C HEP C antibody is negative given prior histpry will get viral load to confirm (ordered) AFP is normal he is scheduled for liver biopsy would suggest remove Gutierrez Catheter in am (after bedrest is over after biopsy) he has consented to HIV testing (also ordered)
--- NOTE | 2016-12-17 11:36 | CONS ---
INFECTIOUS DISEASE CONSULTATION DATE OF CONSULTATION: DATE OF DICTATION: 12/17/2016 REQUESTED BY: Bunny Turner MD DICTATED BY: Rebeka Moscoso MD HISTORY OF PRESENT ILLNESS: This is a 71-year-old man who presented to the emergency room on the with abdominal distention. He was found to have ascites. He has a history of alcohol use and apparently a history of hepatitis C, which has not been confirmed. He last saw a doctor 7 years ago and never returned for followup. He drinks beer daily. He takes no medications. There is no history of any allergies. He was admitted with 2 weeks of progressive increasing abdominal girth and decreased appetite. His surgical history is notable for a right rib cage laceration from a bull's horn from a bull fight many years ago. Apparently, he had hematuria in the emergency room. FAMILY HISTORY: Noncontributory SOCIAL HISTORY: He is . He lives with his . He is from [facility]. He is retired, and he is an active smoker, and he drinks beer daily. REVIEW OF SYSTEMS: Currently, he is resting comfortably. He has a drain draining clear acidic fluid. HOSPITAL COURSE: He was admitted. He underwent a paracentesis and had 7 liters of fluid removed. There were no signs of spontaneous bacterial peritonitis. The cytology did not reveal a malignancy. He underwent an MRI with contrast and was found to have multiple liver masses. He subsequently was reaccumulating and had a drain re-inserted on the . We are asked to see him for this history of possible hepatitis C at the request of oncology. PHYSICAL EXAM: General: He is awake and alert, is resting comfortably. Vital signs: Temperature is 97.8. Pulse is 70, blood pressure 100/59. Respiratory rate is 18. He weighs 126 pounds. When he came in, he was weighing 164 pounds. HEENT: His eyes are mildly icteric. He has no thrush. His neck is supple. Lungs: Clear to auscultation. Heart: Regular rate and rhythm. Abdomen: Flat. He has a drain, its catheter with clear acidic fluid. He has no palpable adenopathy. Extremities: Without edema. LABS: White count is 5.1, hemoglobin 13.6. Platelets are 100. INR is 1.4. BUN and creatinine are 24 and 0.8. Ammonia is 91. His peritoneal fluid had 193 white cells, and his hepatitis serology: His hepatitis C antibody is negative. Cultures from the peritoneal fluid are negative as well. SUMMARY: In summary, this is a man with a history of cirrhosis, chronic alcohol use, question of hepatitis C, found to have ascites and multiple liver masses. We were asked to see him for evaluation of hepatitis C. RECOMMENDATIONS: 1. The antibody is negative but given the prior history, will get viral load to confirm this. His AST as well is normal. 2. He is scheduled for liver biopsy. 3. I would suggest to remove his Gutierrez catheter in the morning after bed rest is over after his biopsy. 4. He has consented to HIV testing, which has been ordered as well. REBEKA MOSCOSO M.D. [id number]
--- NOTE | 2016-12-17 17:53 | CONSULT ---
Consult - text type - Consultation Consultation Note: 71 yr old male with a history of Chronic Alcoholism, Hepatitis C. patient seen for psych eval for depression. No history of ongoing psych Illness or treatment. MS: alert, appears sad and apathetic. No evidence of any self damaging behaviour. Cognition. intact. REC: start Remeron 15mg po hs for depression.
--- NOTE | 2016-12-17 18:10 | PN ---
GI Progress Note Subjective: liver biopsy unsuccessful, still draining ascitic fluid - Objective Vital Signs: Vital Signs Temperature 97.5 F L 12/17/16 15:46 Pulse Rate 65 12/17/16 15:46 Respiratory Rate 18 12/17/16 15:46 Blood Pressure 109/56 12/17/16 15:46 O2 Sat by Pulse Oximetry (%) 99 12/17/16 12:22 Constitutional: Well Nourished Eyes: Yes: Conjunctiva Clear HENT: Yes: Atraumatic Neck: Yes: Trachea Midline Cardiovascular: Yes: Regular Rate and Rhythm Gastrointestinal Inspection: Yes: Ascites ...Palpate: Yes: Soft. No: Firm/Rigid, Guarding, Hepatomegaly, Mass, Pulsatile Mass, Splenomegaly, Tenderness ...Percussion: Yes: Tympanitic Labs: CBC, BMP 12/17/16 06:00 12/17/16 06:00 INR, PTT INR 1.48 (0.82-1.09) H 12/17/16 06:00 Fibrinogen 214.0 mg/dL (238-498) L 12/15/16 06:30 Problem List - Problems (1) Liver mass Assessment/Plan: etiology unclear, transferred to [facility] under the service of Dr Ashkan Londono Code(s): R16.0 - HEPATOMEGALY, NOT ELSEWHERE CLASSIFIED (2) Ascites Code(s): R18.8 - OTHER ASCITES Qualifiers: Ascites type: due to alcoholic hepatitis Qualified Code(s): K70.11 - Alcoholic hepatitis with ascites
--- NOTE | 2016-12-17 20:12 | PN ---
Progress Note (short form) - Note Progress Note: liver bx unsuccessful discussed with dr palmer c/o dysuria even with serrano cath in place bladder scan - bladder empty urine grew group d strep/enterococcus no resistance mentioned will rx ampicillin q 8h x 3 days s/p low bp- lasix held hep c cirrhosis acute decompensated ascites alcoholic liver disease gross hematuria and left flank pain detox consult appreciated Current Medications Furosemide (Lasix Injection -) 40 mg IVPUSH DAILY [facility] Last Admin: 12/17/16 10:06 Dose: Not Given Ampicillin Sodium 1 gm/ Sodium (Chloride) 100 mls @ 200 mls/hr IVPB Q8H-IV [facility] Stop: 12/20/16 23:59 Lactulose (Cephulac (Oral Use)) 20 gm PO BID [facility] Last Admin: 12/17/16 09:58 Dose: Not Given Mirtazapine (Remeron -) 15 mg PO HS [facility] Phytonadione (Aqua Mephyton Injection -) 5 mg SQ DAILY [facility] Stop: 12/20/16 10:01 Rifaximin (Xifaxan -) 550 mg PO BID [facility] Last Admin: 12/17/16 09:58 Dose: Not Given Spironolactone (Aldactone -) 50 mg PO DAILY [facility] Last Admin: 12/17/16 09:58 Dose: Not Given Last Vital Signs Temp Pulse Resp BP Pulse Ox 98.3 F 66 20 92/56 99 12/17/16 19:18 12/17/16 19:18 12/17/16 19:18 12/17/16 19:18 12/17/16 12:22 lungs clear heart reg rate and rhythm abd soft nontender ext no edema CBC, BMP 12/17/16 06:00 12/17/16 06:00 Abnormal Lab Results 12/17/16 12/17/16 12/17/16 06:00 06:00 06:00 RBC 3.98 L MCV 98.4 H Plt Count 100 L INR 1.48 H BUN 24 H D Total Bilirubin 3.3 H D AST 49 H Alkaline Phosphatase 194 H IMP- acute increased ascites underlying severe liver cirrhosis multiple masses right lobe of liver by mri afp 2.1 ! probable hepatocellular ca Plan- GI f/u re: biopsy of hepatic masses and post discharge planning for further management pain meds prn detox
[2016-12-17] MEDS: AMPICILLIN - 1 GM in SODIUM CHLORIDE 100 ML IVPB SCH (21:40)
[2016-12-17] MEDS ORDERED: MIRTAZAPINE 15 MG TABLET (FP) PO SCH (22:00)
--- NOTE | 2016-12-17 22:09 | PN ---
Progress Note (short form) - Note Progress Note: PAtient seen and examined Denies any complaints AFVSS Oropharynx: No thrush, No mucositis Cor: RSR, No murmurs, No gallops Lungs: Clear to P&A Abd: Soft, Normal bowel sounds, nontender, ascites+ Ext:No significant edema Labs: reviewed A/P 71 y/o patient with hepatic mass, cirrhosis, ascites Biopsy was not feasible today Discussed with patients daughterand family --that he may need to be transfered to tertiary center per GI team for further w/u
[2016-12-17] MEDS ORDERED: PT OWN MED DRAWER 7, Y5N ONE (22:40)
[2016-12-18] MEDS: AMPICILLIN - 1 GM in SODIUM CHLORIDE 100 ML IVPB SCH ×3 (02:30→17:16)
[2016-12-18] MEDS ORDERED: PT OWN MED DRAWER 7, Y5N ONE ×2 (09:14→17:14)
[2016-12-18] MEDS: PHYTONADIONE 10 MG/1 ML AMP SQ SCH (09:17)
[2016-12-18] MEDS: SPIRONOLACTONE 25 MG TABLET (FP) PO SCH (09:17)
[2016-12-18] MEDS: LACTULOSE 20 GM/30 ML UDC (FOR ORAL USE ONLY) PO SCH ×2 (09:18→21:16)
[2016-12-18] MEDS: RIFAXIMIN 550 MG TABLET (UD) PO SCH ×2 (09:18→21:21)
[2016-12-18] MEDS: FUROSEMIDE 40 MG/4 ML INJECTABLE VIAL IVPUSH SCH (09:18)
[2016-12-18 10:47] LABS: HIV 1 & 2 AB NEGATIVE; HIV 1 AGp24 NEGATIVE
--- NOTE | 2016-12-18 12:56 | PN ---
Progress Note (short form) - Note Progress Note: noticed more drowsy and with worse intake today vital signs stable started on mirtazapine yesterday night hepatic mass hepatic cirrhosis/ ascites alcoholic liver disease s/p unsuccessful attempt at biopsy waiting for transfer to [facility] Current Medications Furosemide (Lasix Injection -) 40 mg IVPUSH DAILY [facility] Last Admin: 12/18/16 09:18 Dose: 40 mg Ampicillin Sodium 1 gm/ Sodium (Chloride) 100 mls @ 200 mls/hr IVPB Q8H-IV [facility] Stop: 12/20/16 23:59 Last Admin: 12/18/16 10:48 Dose: 200 mls/hr Lactulose (Cephulac (Oral Use)) 20 gm PO BID [facility] Last Admin: 12/18/16 09:18 Dose: 20 gm Mirtazapine (Remeron -) 15 mg PO HS [facility] Last Admin: 12/17/16 21:46 Dose: 15 mg Phytonadione (Aqua Mephyton Injection -) 5 mg SQ DAILY [facility] Stop: 12/20/16 10:01 Last Admin: 12/18/16 09:17 Dose: 5 mg Rifaximin (Xifaxan -) 550 mg PO BID [facility] Last Admin: 12/18/16 09:18 Dose: 550 mg Spironolactone (Aldactone -) 50 mg PO DAILY [facility] Last Admin: 12/18/16 09:17 Dose: 50 mg Last Vital Signs Temp Pulse Resp BP Pulse Ox 97.4 F L 60 20 102/66 99 12/18/16 08:45 12/18/16 08:45 12/18/16 08:45 12/18/16 08:45 12/17/16 21:00 CBC, BMP 12/17/16 06:00 12/17/16 06:00 New UTI w enterococcus
[2016-12-18 13:39] LABS: MCH 33.7 pg (25.7-33.7); MEAN CELL VOLUME 99.2 fl (80-96); MEAN PLT VOLUME 9.8 fl (7.5-11.1); PLATELET COUNT 109 K/MM3 (134-434); RDW 15.1 % (11.9-15.9); WHITE BLOOD COUNT 4.1 K/mm3 (4.0-10.0)
[2016-12-18 14:05] LABS: ALBUMIN 3.4 g/dl (3.4-5.0); ALK PHOS 207 U/L (45-117); ANION GAP 10 (8-16); BILIRUBIN,TOTAL 2.6 mg/dL (0.2-1.0); CO2 30 mmol/L (21-32); CREATININE 0.8 mg/dL (0.7-1.3); GLUCOSE,RANDOM 132 mg/dL (74-106); SGOT/AST 44 U/L (15-37); SGPT/ALT 38 U/L (12-78)
--- NOTE | 2016-12-18 20:20 | PN ---
Progress Note (short form) - Note Progress Note: Patient seen and examined. Somewhat lethargic-likely med related Last Vital Signs Temp Pulse Resp BP Pulse Ox 97.8 F 85 20 103/61 97 12/18/16 17:35 12/18/16 17:35 12/18/16 17:35 12/18/16 17:35 12/18/16 09:00 No icterus Cor: RSR, No murmurs, No gallops Lungs: Clear to P&A Abd: decreased ascites Ext:No significant edema Skin: No rashes, Integument intact CBC, BMP 12/18/16 13:25 12/18/16 13:25 Current Medications Generic Name Dose Route Start Last Admin Trade Name Freq PRN Reason Stop Dose Admin Furosemide 40 mg 12/11/16 20:45 12/18/16 09:18 Lasix Injection - IVPUSH 40 mg DAILY [facility] Administration Ampicillin Sodium 1 gm/ Sodium 100 mls @ 200 mls/hr 12/17/16 20:30 12/18/16 17: 16 Chloride IVPB 12/20/16 23:59 200 mls/hr Q8H-IV [facility] Administration Lactulose 20 gm 12/11/16 20:38 12/18/16 09:18 Cephulac (Oral Use) PO 20 gm BID [facility] Administration Phytonadione 5 mg 12/18/16 10:00 12/18/16 09:17 Aqua Mephyton Injection - SQ 12/20/16 10:01 5 mg DAILY [facility] Administration Rifaximin 550 mg 12/11/16 22:00 12/18/16 09:18 Xifaxan - PO 550 mg BID [facility] Administration Spironolactone 50 mg 12/11/16 20:45 12/18/16 09:17 Aldactone - PO 50 mg DAILY [facility] Administration Impression: Significant ascitic drainage ; more comfortable after same Liver Mass- unsuccessful attempt at biopsy For transfer to [facility]-Liver Service. Problem List - Problems (1) Liver mass Code(s): R16.0 - HEPATOMEGALY, NOT ELSEWHERE CLASSIFIED (2) Hematuria Code(s): R31.9 - HEMATURIA, UNSPECIFIED (3) Cirrhosis Code(s): K74.60 - UNSPECIFIED CIRRHOSIS OF LIVER Qualifiers: Hepatic cirrhosis type: alcoholic cirrhosis Ascites presence: with ascites Qualified Code(s): K70.31 - Alcoholic cirrhosis of liver with ascites (4) Ascites Code(s): R18.8 - OTHER ASCITES Qualifiers: Ascites type: due to alcoholic hepatitis Qualified Code(s): K70.11 - Alcoholic hepatitis with ascites (5) Alcohol abuse Code(s): F10.10 - ALCOHOL ABUSE, UNCOMPLICATED (6) Hepatitis C Code(s): B19.20 - UNSPECIFIED VIRAL HEPATITIS C WITHOUT HEPATIC COMA
[2016-12-19] MEDS: AMPICILLIN - 1 GM in SODIUM CHLORIDE 100 ML IVPB SCH ×3 (01:47→18:10)
[2016-12-19 08:35] LABS: MCH 33.7 pg (25.7-33.7); MCHC 34.1 g/dl (32.0-35.9); MEAN CELL VOLUME 98.7 fl (80-96); MEAN PLT VOLUME 10.8 fl (7.5-11.1); PLATELET COUNT 105 K/MM3 (134-434)
[2016-12-19] MEDS ORDERED: PT OWN MED DRAWER 7, Y5N ONE ×2 (09:00→18:06)
[2016-12-19] MEDS: LACTULOSE 20 GM/30 ML UDC (FOR ORAL USE ONLY) PO SCH ×2 (09:07→21:53)
[2016-12-19] MEDS: FUROSEMIDE 40 MG/4 ML INJECTABLE VIAL IVPUSH SCH (09:07)
[2016-12-19] MEDS: SPIRONOLACTONE 25 MG TABLET (FP) PO SCH (09:07)
[2016-12-19] MEDS: PHYTONADIONE 10 MG/1 ML AMP SQ SCH (09:07)
[2016-12-19 09:47] LABS: ALBUMIN 3.2 g/dl (3.4-5.0); ALK PHOS 208 U/L (45-117); ANION GAP 8 (8-16); BILIRUBIN,TOTAL 3.2 mg/dL (0.2-1.0); CALCIUM 8.5 mg/dL (8.5-10.1); CO2 29 mmol/L (21-32); CREATININE 0.7 mg/dL (0.7-1.3); GLUCOSE,RANDOM 87 mg/dL (74-106); SGOT/AST 44 U/L (15-37); SGPT/ALT 40 U/L (12-78); TOT PROT 6.4 g/dl (6.4-8.2)
--- NOTE | 2016-12-19 15:00 | PN ---
Progress Note (short form) - Note Progress Note: waiting for bed and transfer to [facility] more alert and responsive today eats with encouragement ambulates with walker with PT and with family visiting 12/18 noticed more drowsy and with worse intake today vital signs stable started on mirtazapine yesterday night hepatic mass hepatic cirrhosis/ ascites alcoholic liver disease s/p unsuccessful attempt at biopsy waiting for transfer to [facility] w enterococcus Current Medications Furosemide (Lasix Injection -) 40 mg IVPUSH DAILY [facility] Last Admin: 12/19/16 09:07 Dose: 40 mg Ampicillin Sodium 1 gm/ Sodium (Chloride) 100 mls @ 200 mls/hr IVPB Q8H-IV ADRIAN Stop: 12/20/16 23:59 Last Admin: 12/19/16 09:07 Dose: 200 mls/hr Lactulose (Cephulac (Oral Use)) 20 gm PO BID ADRIAN Last Admin: 12/19/16 09:07 Dose: 20 gm Phytonadione ([place]phy[place] Injection -) 5 mg SQ DAILY ADRIAN Stop: 12/20/16 10:01 Last Admin: 12/19/16 09:07 Dose: 5 mg Spironolactone (Aldactone -) 50 mg PO DAILY [facility] Last Admin: 12/19/16 09:07 Dose: 50 mg Last Vital Signs Temp Pulse Resp BP Pulse Ox 98.6 F 77 18 112/62 98 12/19/16 08:55 12/19/16 08:55 12/19/16 08:55 12/19/16 08:55 12/19/16 09:00 CBC, BMP 12/19/16 07:00 12/19/16 07:00 Abnormal Lab Results 12/19/16 12/19/16 07:00 07:00 MCV 98.7 H Plt Count 105 L BUN 28 H D Total Bilirubin 3.2 H D AST 44 H Alkaline Phosphatase 208 H Albumin 3.2 L
[2016-12-20] MEDS ORDERED: ACETAMINOPHEN 500 MG TABLET (FP) PO PRN (02:20)
[2016-12-20] MEDS ORDERED: VANCOMYCIN 1 GRAM (PRE-DOCKED) 1,000 MG/250 ML BAG IVPB ONE (02:30)
[2016-12-20] MEDS ORDERED: PIPERACILLIN/TAZOB 3.375 GM/50 ML PRE-DOCKED IVPB ONE (02:30)
[2016-12-20] MEDS: AMPICILLIN - 1 GM in SODIUM CHLORIDE 100 ML IVPB SCH (03:02)
[2016-12-20] MEDS: SPIRONOLACTONE 25 MG TABLET (FP) PO SCH (10:00)
[2016-12-20] MEDS: LACTULOSE 20 GM/30 ML UDC (FOR ORAL USE ONLY) PO SCH ×2 (10:00→21:30)
[2016-12-20] MEDS: PHYTONADIONE 10 MG/1 ML AMP SQ SCH (10:00)
[2016-12-20] MEDS: FUROSEMIDE 40 MG/4 ML INJECTABLE VIAL IVPUSH SCH (10:01)
--- NOTE | 2016-12-20 14:36 | PN ---
Progress Note (short form) - Note Progress Note: s/p fever spike last night blood cultures and cxr done vancomycin and zosyn given pending ID eval better today and afebrile consuming more than 50% of meals so far 12/19 waiting for bed and transfer to [facility] more alert and responsive today eats with encouragement ambulates with walker with PT and with family visiting 12/18 noticed more drowsy and with worse intake today vital signs stable started on mirtazapine yesterday night hepatic mass hepatic cirrhosis/ ascites alcoholic liver disease s/p unsuccessful attempt at biopsy waiting for transfer to [facility] w enterococcus Current Medications Acetaminophen (Tylenol -) 500 mg PO Q6H PRN PRN Reason: FVER >100* Last Admin: 12/20/16 02:45 Dose: 500 mg Furosemide (Lasix Injection -) 40 mg IVPUSH DAILY [facility] Last Admin: 12/20/16 10:01 Dose: 40 mg Lactulose (Cephulac (Oral Use)) 30 gm PO BID [facility] Last Admin: 12/20/16 10:00 Dose: 30 gm Spironolactone (Aldactone -) 50 mg PO DAILY [facility] Last Admin: 12/20/16 10:00 Dose: 50 mg Last Vital Signs Temp Pulse Resp BP Pulse Ox 98.8 F 74 20 102/64 95 12/20/16 10:00 12/20/16 10:00 12/20/16 10:00 12/20/16 10:00 12/20/16 09:00 CBC, BMP 12/19/16 07:00 12/19/16 07:00
--- NOTE | 2016-12-20 20:15 | PN ---
GI Progress Note Subjective: patient has a large liver mass and spoke to Arelis his daughter. He would prefer conservative management and would not want to be transferred to [facility]. Spoke to Dr Rodas his liver mass fulfilled rads 4 criteria and most likely is malignant. The daughter was made aware. - Objective Vital Signs: Vital Signs Temperature 98.3 F 12/20/16 17:13 Pulse Rate 78 12/20/16 17:13 Respiratory Rate 20 12/20/16 17:13 Blood Pressure 93/62 12/20/16 17:13 O2 Sat by Pulse Oximetry (%) 95 12/20/16 09:00 Constitutional: Well Nourished Eyes: Yes: Conjunctiva Clear HENT: Yes: Atraumatic, Tonsillar Exudate Cardiovascular: Yes: Regular Rate and Rhythm ...Palpate: Yes: Soft. No: Firm/Rigid, Guarding, Hepatomegaly, Mass, Pulsatile Mass, Splenomegaly, Tenderness Labs: CBC, BMP 12/19/16 07:00 12/19/16 07:00 INR, PTT INR 1.48 (0.82-1.09) H 12/17/16 06:00 Fibrinogen 214.0 mg/dL (238-498) L 12/15/16 06:30 Problem List - Problems (1) Liver mass Assessment/Plan: most likely hepatoma Code(s): R16.0 - HEPATOMEGALY, NOT ELSEWHERE CLASSIFIED (2) Ascites Assessment/Plan: continue j-p drain Code(s): R18.8 - OTHER ASCITES Qualifiers: Ascites type: due to alcoholic hepatitis Qualified Code(s): K70.11 - Alcoholic hepatitis with ascites
[2016-12-21 08:23] LABS: MCH 33.8 pg (25.7-33.7); MCHC 34.4 g/dl (32.0-35.9); MEAN CELL VOLUME 98.2 fl (80-96); MEAN PLT VOLUME 11.1 fl (7.5-11.1); PLATELET COUNT 113 K/MM3 (134-434); RDW 14.6 % (11.9-15.9); WHITE BLOOD COUNT 5.5 K/mm3 (4.0-10.0)
[2016-12-21 09:05] LABS: ALBUMIN 3.1 g/dl (3.4-5.0); ALK PHOS 243 U/L (45-117); ANION GAP 12 (8-16); CALCIUM 8.8 mg/dL (8.5-10.1); CO2 28 mmol/L (21-32); CREATININE 0.7 mg/dL (0.7-1.3); GLUCOSE,RANDOM 93 mg/dL (74-106); SGOT/AST 55 U/L (15-37); SGPT/ALT 44 U/L (12-78); TOT PROT 6.8 g/dl (6.4-8.2)
[2016-12-21] MEDS: SPIRONOLACTONE 25 MG TABLET (FP) PO SCH (09:48)
[2016-12-21] MEDS: FUROSEMIDE 40 MG/4 ML INJECTABLE VIAL IVPUSH SCH (09:49)
[2016-12-21] MEDS: LACTULOSE 20 GM/30 ML UDC (FOR ORAL USE ONLY) PO SCH ×2 (09:49→21:53)
--- NOTE | 2016-12-21 13:48 | PN ---
Progress Note (short form) - Note Progress Note: better bp better mentation dr palmer's note appreciated re conservative management referring to hospice 12/20 s/p fever spike last night blood cultures and cxr done vancomycin and zosyn given pending ID eval better today and afebrile consuming more than 50% of meals so far 12/19 waiting for bed and transfer to [facility] more alert and responsive today eats with encouragement ambulates with walker with PT and with family visiting 12/18 noticed more drowsy and with worse intake today vital signs stable started on mirtazapine yesterday night hepatic mass hepatic cirrhosis/ ascites alcoholic liver disease s/p unsuccessful attempt at biopsy waiting for transfer to [facility] w enterococcus Active Medications Acetaminophen (Tylenol -) 500 mg PO Q6H PRN PRN Reason: FVER >100* Last Admin: 12/20/16 02:45 Dose: 500 mg Furosemide (Lasix Injection -) 40 mg IVPUSH DAILY [facility] Last Admin: 12/21/16 09:49 Dose: 40 mg Lactulose (Cephulac (Oral Use)) 30 gm PO BID ADRIAN Last Admin: 12/21/16 09:49 Dose: 30 gm Spironolactone (Aldactone -) 50 mg PO DAILY [facility] Last Admin: 12/21/16 09:48 Dose: 50 mg Last Vital Signs Temp Pulse Resp BP Pulse Ox 97.6 F 77 18 112/61 97 12/21/16 08:58 12/21/16 08:58 12/21/16 08:58 12/21/16 09:30 12/21/16 09:00 CBC, BMP 12/21/16 06:30 12/21/16 06:30
--- NOTE | 2016-12-21 19:13 | PN ---
Progress Note (short form) - Note Progress Note: Patient seen and examined CC: ascites , liver mass Complains of tiredness and fatigue. HEENT: NESSA, EOM Intact Oropharynx: No thrush, No mucositis Neck: Supple Nodes: Without adenopathy Breasts: Without masses Cor: RSR, No murmurs, No gallops Lungs: Clear to P&A Abd: Soft, Normal bowel sounds, No organomegaly, drainage catheter Ext:No significant edema Skin: No rashes, Integument intact ROS- no headache, diplopia, epistaxis, dysuria, back pain. , SOB, dyspnea, abdominal pains, had BM x 2. Last Vital Signs Temp Pulse Resp BP Pulse Ox 98.1 F 84 20 103/67 97 12/21/16 16:55 12/21/16 16:55 12/21/16 16:55 12/21/16 16:55 12/21/16 09:00 Current Medications Generic Name Dose Route Start Last Admin Trade Name Freq PRN Reason Stop Dose Admin Acetaminophen 500 mg 12/20/16 02:20 12/20/16 02:45 Tylenol - PO 500 mg Q6H PRN Administration FVER >100* Furosemide 40 mg 12/11/16 20:45 12/21/16 09:49 Lasix Injection - IVPUSH 40 mg DAILY ADRIAN Administration Lactulose 30 gm 12/19/16 15:21 12/21/16 09:49 Cephulac (Oral Use) PO 30 gm BID ADRIAN Administration Spironolactone 50 mg 12/11/16 20:45 12/21/16 09:48 Aldactone - PO 50 mg DAILY ADRIAN Administration CBC, BMP 12/21/16 06:30 12/21/16 06:30 Impression: Liver mass- likely HCC , but no histoogic diagnosis\ Ascites- likely from alcoholic cirrhosis Thrombocytopenia- secondary to liver disease and portal hypertension Have discussed with daughter possible consideration of Sorafenib if histologic dx of HCC. Patient and family may opt for conservative Rx. Problem List - Problems (1) Liver mass Code(s): R16.0 - HEPATOMEGALY, NOT ELSEWHERE CLASSIFIED (2) Hematuria Code(s): R31.9 - HEMATURIA, UNSPECIFIED (3) Cirrhosis Code(s): K74.60 - UNSPECIFIED CIRRHOSIS OF LIVER Qualifiers: Hepatic cirrhosis type: alcoholic cirrhosis Ascites presence: with ascites Qualified Code(s): K70.31 - Alcoholic cirrhosis of liver with ascites (4) Ascites Code(s): R18.8 - OTHER ASCITES Qualifiers: Ascites type: due to alcoholic hepatitis Qualified Code(s): K70.11 - Alcoholic hepatitis with ascites (5) Alcohol abuse Code(s): F10.10 - ALCOHOL ABUSE, UNCOMPLICATED (6) Hepatitis C Code(s): B19.20 - UNSPECIFIED VIRAL HEPATITIS C WITHOUT HEPATIC COMA
[2016-12-22] MEDS: FUROSEMIDE 40 MG/4 ML INJECTABLE VIAL IVPUSH SCH (09:23)
[2016-12-22] MEDS: SPIRONOLACTONE 25 MG TABLET (FP) PO SCH (09:23)
[2016-12-22] MEDS: LACTULOSE 20 GM/30 ML UDC (FOR ORAL USE ONLY) PO SCH ×2 (09:24→22:03)
--- NOTE | 2016-12-22 12:40 | PN ---
GI Progress Note Subjective: patient noted have change in his sleeping pattern, ascitic fluid less the past 24 hours - Objective Vital Signs: Vital Signs Temperature 98.6 F 12/22/16 10:00 Pulse Rate 76 12/22/16 10:00 Respiratory Rate 20 12/22/16 10:00 Blood Pressure 101/63 12/22/16 10:00 O2 Sat by Pulse Oximetry (%) 97 12/22/16 09:00 Constitutional: Well Nourished Eyes: Yes: Conjunctiva Clear HENT: Yes: Atraumatic Neck: Yes: Supple Cardiovascular: Yes: Regular Rate and Rhythm Respiratory: Yes: CTA Bilaterally Gastrointestinal Inspection: No: Distention ...Palpate: Yes: Soft. No: Firm/Rigid, Guarding, Hepatomegaly, Mass, Pulsatile Mass, Splenomegaly Labs: CBC, BMP 12/21/16 06:30 12/21/16 06:30 INR, PTT INR 1.48 (0.82-1.09) H 12/17/16 06:00 Fibrinogen 214.0 mg/dL (238-498) L 12/15/16 06:30 Problem List - Problems (1) Liver mass Code(s): R16.0 - HEPATOMEGALY, NOT ELSEWHERE CLASSIFIED (2) Ascites Assessment/Plan: will give p diuretics Code(s): R18.8 - OTHER ASCITES Qualifiers: Ascites type: due to alcoholic hepatitis Qualified Code(s): K70.11 - Alcoholic hepatitis with ascites (3) Hepatic encephalopathy Assessment/Plan: start Xifaxan continue Lactulose Code(s): K72.90 - HEPATIC FAILURE, UNSPECIFIED WITHOUT COMA
[2016-12-22] MEDS: RIFAXIMIN 550 MG TABLET (UD) PO SCH ×2 (13:56→22:03)
--- NOTE | 2016-12-22 14:24 | PN ---
Progress Note (short form) - Note Progress Note: somnolent Current Medications Acetaminophen (Tylenol -) 500 mg PO Q6H PRN PRN Reason: FVER >100* Last Admin: 12/20/16 02:45 Dose: 500 mg Furosemide (Lasix -) 20 mg PO DAILY [facility] Lactulose (Cephulac (Oral Use)) 30 gm PO BID [facility] Last Admin: 12/22/16 09:24 Dose: 30 gm Rifaximin (Xifaxan -) 550 mg PO BID [facility] Last Admin: 12/22/16 13:56 Dose: 550 mg Spironolactone (Aldactone -) 100 mg PO DAILY [facility] Last Vital Signs Temp Pulse Resp BP Pulse Ox 98.6 F 76 20 101/63 97 12/22/16 10:00 12/22/16 10:00 12/22/16 10:00 12/22/16 10:00 12/22/16 09:00 CBC, BMP 12/21/16 06:30 12/21/16 06:30 course so far 12/21 better bp better mentation dr palmer's note appreciated re conservative management referring to hospice 12/20 s/p fever spike last night blood cultures and cxr done vancomycin and zosyn given pending ID eval better today and afebrile consuming more than 50% of meals so far 12/19 waiting for bed and transfer to [facility] more alert and responsive today eats with encouragement ambulates with walker with PT and with family visiting 12/18 noticed more drowsy and with worse intake today vital signs stable started on mirtazapine yesterday night hepatic mass hepatic cirrhosis/ ascites alcoholic liver disease s/p unsuccessful attempt at biopsy waiting for transfer to [facility] enterococcus
[2016-12-23] MEDS: SPIRONOLACTONE 25 MG TABLET (FP) PO SCH (09:22)
[2016-12-23] MEDS: LACTULOSE 20 GM/30 ML UDC (FOR ORAL USE ONLY) PO SCH ×2 (09:23→21:32)
[2016-12-23] MEDS: RIFAXIMIN 550 MG TABLET (UD) PO SCH ×2 (09:23→21:32)
[2016-12-23] MEDS: FUROSEMIDE 20 MG TABLET (FP) PO SCH (09:23)
--- NOTE | 2016-12-23 19:54 | PN ---
Progress Note (short form) - Note Progress Note: more alert and responsive waiting for hospice to be arranged Current Medications Acetaminophen (Tylenol -) 500 mg PO Q6H PRN PRN Reason: FVER >100* Last Admin: 12/20/16 02:45 Dose: 500 mg Furosemide (Lasix -) 20 mg PO DAILY [facility] Last Admin: 12/23/16 09:23 Dose: 20 mg Lactulose (Cephulac (Oral Use)) 30 gm PO BID [facility] Last Admin: 12/23/16 09:23 Dose: 30 gm Rifaximin (Xifaxan -) 550 mg PO BID [facility] Last Admin: 12/23/16 09:23 Dose: 550 mg Spironolactone (Aldactone -) 100 mg PO DAILY [facility] Last Admin: 12/23/16 09:22 Dose: 100 mg Last Vital Signs Temp Pulse Resp BP Pulse Ox 98.0 F 77 18 81/58 97 12/23/16 17:39 12/23/16 17:39 12/23/16 17:39 12/23/16 17:39 12/23/16 09:00 CBC, BMP 12/21/16 06:30 12/21/16 06:30 12/22 somnolent course so far 12/21 better bp better mentation dr palmer's note appreciated re conservative management referring to hospice 12/20 s/p fever spike last night blood cultures and cxr done vancomycin and zosyn given pending ID eval better today and afebrile consuming more than 50% of meals so far 12/19 waiting for bed and transfer to [facility] more alert and responsive today eats with encouragement ambulates with walker with PT and with family visiting 12/18 noticed more drowsy and with worse intake today vital signs stable started on mirtazapine yesterday night hepatic mass hepatic cirrhosis/ ascites alcoholic liver disease s/p unsuccessful attempt at biopsy waiting for transfer to [facility] enterococcus
[2016-12-24] MEDS: FUROSEMIDE 20 MG TABLET (FP) PO SCH (10:12)
[2016-12-24] MEDS: LACTULOSE 20 GM/30 ML UDC (FOR ORAL USE ONLY) PO SCH ×2 (10:13→21:34)
[2016-12-24] MEDS: RIFAXIMIN 550 MG TABLET (UD) PO SCH ×2 (10:13→21:34)
[2016-12-24] MEDS: SPIRONOLACTONE 25 MG TABLET (FP) PO SCH (10:13)
--- NOTE | 2016-12-24 20:19 | PN ---
Progress Note (short form) - Note Progress Note: somnolent son at bedside says pt consumed a lot of food brought from home earlier still waiting for home hospice 12/23 more alert and responsive waiting for hospice to be arranged Active Medications Acetaminophen (Tylenol -) 500 mg PO Q6H PRN PRN Reason: FVER >100* Last Admin: 12/20/16 02:45 Dose: 500 mg Furosemide (Lasix -) 20 mg PO DAILY [facility] Last Admin: 12/24/16 10:12 Dose: 20 mg Lactulose (Cephulac (Oral Use)) 30 gm PO BID [facility] Last Admin: 12/24/16 10:13 Dose: 30 gm Rifaximin (Xifaxan -) 550 mg PO BID [facility] Last Admin: 12/24/16 10:13 Dose: 550 mg Spironolactone (Aldactone -) 100 mg PO DAILY [facility] Last Admin: 12/24/16 10:13 Dose: 100 mg Last Vital Signs Temp Pulse Resp BP Pulse Ox 98.0 F 83 18 103/64 97 12/24/16 17:55 12/24/16 17:55 12/24/16 17:55 12/24/16 17:55 12/24/16 09:00 CBC, BMP 12/21/16 06:30 12/21/16 06:30 12/22 somnolent course so far 12/21 better bp better mentation dr palmer's note appreciated re conservative management referring to hospice 12/20 s/p fever spike last night blood cultures and cxr done vancomycin and zosyn given pending ID eval better today and afebrile consuming more than 50% of meals so far 12/19 waiting for bed and transfer to [facility] more alert and responsive today eats with encouragement ambulates with walker with PT and with family visiting 12/18 noticed more drowsy and with worse intake today vital signs stable started on mirtazapine yesterday night hepatic mass hepatic cirrhosis/ ascites alcoholic liver disease s/p unsuccessful attempt at biopsy waiting for transfer to [facility] enterococcus
[2016-12-25 07:39] LABS: MCH 34.2 pg (25.7-33.7); MCHC 35.2 g/dl (32.0-35.9); PLATELET COUNT 104 K/MM3 (134-434); RDW 14.5 % (11.9-15.9); WHITE BLOOD COUNT 4.4 K/mm3 (4.0-10.0)
[2016-12-25 07:54] LABS: ALBUMIN 2.9 g/dl (3.4-5.0); ANION GAP 11 (8-16); CO2 32 mmol/L (21-32); CREATININE 0.8 mg/dL (0.7-1.3); GLUCOSE,RANDOM 97 mg/dL (74-106); SGOT/AST 80 U/L (15-37); SGPT/ALT 66 U/L (12-78)
[2016-12-25 07:56] LABS: ALK PHOS 265 U/L (45-117); BILIRUBIN,TOTAL 1.8 mg/dL (0.2-1.0); TOT PROT 6.8 g/dl (6.4-8.2)
[2016-12-25] MEDS: FUROSEMIDE 20 MG TABLET (FP) PO SCH (10:37)
[2016-12-25] MEDS: RIFAXIMIN 550 MG TABLET (UD) PO SCH ×2 (10:37→21:31)
[2016-12-25] MEDS: LACTULOSE 20 GM/30 ML UDC (FOR ORAL USE ONLY) PO SCH ×2 (10:37→21:29)
[2016-12-25] MEDS: SPIRONOLACTONE 25 MG TABLET (FP) PO SCH (10:41)
--- NOTE | 2016-12-25 14:55 | DS ---
Physical Examination Vital Signs: Vital Signs Temperature 98.4 F 12/25/16 06:59 Pulse Rate 74 12/25/16 06:59 Respiratory Rate 20 12/25/16 09:00 Blood Pressure 95/69 12/25/16 06:59 O2 Sat by Pulse Oximetry (%) 96 12/25/16 09:00 Constitutional: Yes: Cachectic Eyes: Yes: Conjunctiva Clear Neck: Yes: Supple Cardiovascular: Yes: Regular Rate and Rhythm Respiratory: Yes: Diminished Gastrointestinal: Yes: Normal Bowel Sounds, Soft Edema: No Neurological: Yes: Weakness ...Motor Strength: WNL Labs: CBC, BMP 12/25/16 06:15 12/25/16 06:15 Discharge Summary Reason For Visit: ASCITES; LIVER MASS; HEMATURIA Current Active Problems Alcohol abuse (Acute) Alcohol dependence with uncomplicated withdrawal (Acute) Ascites (Acute) Cirrhosis (Acute) Hematuria (Acute) Hepatic encephalopathy (Acute) Liver mass (Acute) dehydration fail thrive Procedures: Principal: paracentesis Other Procedures: failed liver Bx Hospital Course: admitted for decomp liver dz; under the influence; Hx + for cirrhosis; found to have multiple liver lesions; Hep C testing was negative. Bx attempted but could not be accomplished; family offered to have Pt transfered to [facility] facility but declined and opted for hospice instead; as prognosis deemed to be very poor. He under went paracentesis, and various liters of ascites were drained; placed on various agents to hopefully prevent recurrence of fluid accumulation; understands that the prognosis is poor. Condition: Poor - Instructions Diet, Activity, Other Instructions: as tolerated Referrals: Ines Ramirez MD [Primary Care Provider] - Disposition: HOME - Home Medications Comprehensive Discharge Medication List: Ambulatory Orders Furosemide [Lasix -] 20 mg PO DAILY #30 tablet 12/25/16 Lactulose (Oral Use) [Cephulac -] 30 gm PO BID #60 udc 12/25/16 Rifaximin [Xifaxan -] 550 mg PO BID #60 tablet 12/25/16 Spironolactone [Aldactone -] 100 mg PO DAILY #30 tablet 12/25/16
--- NOTE | 2016-12-25 20:31 | PN ---
Progress Note (short form) - Note Progress Note: Patient seen and examined No complaints of chest pain, SOB, dyspnea, abdominal pain, nausea, emesis. Catheter has been removed. Decision re conservative management although option of Sorafenib was offered to patient and family. Last Vital Signs Temp Pulse Resp BP Pulse Ox 97.9 F 85 20 91/60 96 12/25/16 16:25 12/25/16 16:25 12/25/16 16:25 12/25/16 16:25 12/25/16 09:00 HEENT: NESSA, EOM Intact Oropharynx: No thrush, No mucositis,coated tongue Cor: RSR, No murmurs, No gallops Lungs: diminished breath sounds bilaterally Abd: Soft, Normal bowel sounds, No organomegaly, ascites beginning to recur Ext:No significant edema Skin: No rashes, Integument intact CBC, BMP 12/25/16 06:15 12/25/16 06:15 Current Medications Generic Name Dose Route Start Last Admin Trade Name Freq PRN Reason Stop Dose Admin Acetaminophen 500 mg 12/20/16 02:20 12/20/16 02:45 Tylenol - PO 500 mg Q6H PRN Administration FVER >100* Furosemide 20 mg 12/23/16 10:00 12/25/16 10:37 Lasix - PO 20 mg DAILY ADRIAN Administration Lactulose 30 gm 12/19/16 15:21 12/25/16 10:37 Cephulac (Oral Use) PO 30 gm BID ADRIAN Administration Rifaximin 550 mg 12/22/16 13:00 12/25/16 10:37 Xifaxan - PO 550 mg BID ADRIAN Administration Spironolactone 100 mg 12/23/16 10:00 12/25/16 10:41 Aldactone - PO 100 mg DAILY ADRIAN Administration Impression; Alcoholic cirrhosis Ascites Liver Mass S/P paracentesis Plan: Attempt at liver biopsy was unsuccessful. In absence of tissue, Sorafeib as option was not considered feasible. Family apparently wants a conservative approach. Problem List - Problems (1) Liver mass Code(s): R16.0 - HEPATOMEGALY, NOT ELSEWHERE CLASSIFIED (2) Hematuria Code(s): R31.9 - HEMATURIA, UNSPECIFIED (3) Cirrhosis Code(s): K74.60 - UNSPECIFIED CIRRHOSIS OF LIVER Qualifiers: Hepatic cirrhosis type: alcoholic cirrhosis Ascites presence: with ascites Qualified Code(s): K70.31 - Alcoholic cirrhosis of liver with ascites (4) Ascites Code(s): R18.8 - OTHER ASCITES Qualifiers: Ascites type: due to alcoholic hepatitis Qualified Code(s): K70.11 - Alcoholic hepatitis with ascites (5) Alcohol abuse Code(s): F10.10 - ALCOHOL ABUSE, UNCOMPLICATED (6) Hepatitis C Code(s): B19.20 - UNSPECIFIED VIRAL HEPATITIS C WITHOUT HEPATIC COMA
[2016-12-26 09:02] VITALS: BP 105/73; PULSE 71; TEMP 97.9
[2016-12-26] MEDS ORDERED: PT OWN MED DRAWER 7, Y5N ONE ×2 (09:19→10:38)
[2016-12-26] MEDS: SPIRONOLACTONE 25 MG TABLET (FP) PO SCH (09:20)
[2016-12-26] MEDS: FUROSEMIDE 20 MG TABLET (FP) PO SCH (09:20)
[2016-12-26] MEDS: RIFAXIMIN 550 MG TABLET (UD) PO SCH (09:20)
[2016-12-26] MEDS: LACTULOSE 20 GM/30 ML UDC (FOR ORAL USE ONLY) PO SCH (09:20)
--- NOTE | 2016-12-26 12:29 | PN ---
Progress Note (short form) - Note Progress Note: Addemndum NO C/O PAIN `````````````` vss heart--rr lungs--grossly clear abd--soft, NT neuro--drowsy but rousable, in NAD `````````````````````````````````` HCC--poor progn; aggressive intervention declined, and will be placed under home hospice ~~~~~~~~~~~~Dr Bone
== END 2016-12-26 13:44 | disposition hospice, home (50) | DRG 436 ==
LOC: SUPCPDRO 11:30 → JER 11:30 → JERBED 17:09 → J8W 20:48
PROVIDERS: ADMIT Internal Medicine Nephrology; ATTEND Internal Medicine Nephrology
PROC: 0W9G3ZX Drainage of Peritoneal Cavity, Percutaneous Approach, Diagnostic (ICD-10-PCS; principal; 2016-12-12)
PROC: 0W9G40Z Drainage of Peritoneal Cavity with Drainage Device, Percutaneous Endoscopic Approach (ICD-10-PCS; 2016-12-14)
PROC: 30233K1 Transfusion of Nonautologous Frozen Plasma into Peripheral Vein, Percutaneous Approach (ICD-10-PCS; 2016-12-17)
PROC: 30233R1 Transfusion of Nonautologous Platelets into Peripheral Vein, Percutaneous Approach (ICD-10-PCS; 2016-12-17)
DX: C22.0 Liver cell carcinoma (principal); K76.6 Portal hypertension; R64 Cachexia; Z68.1 Body mass index [BMI] 19.9 or less, adult; D68.9 Coagulation defect, unspecified; N39.0 Urinary tract infection, site not specified; K72.90 Hepatic failure, unspecified without coma; K70.31 Alcoholic cirrhosis of liver with ascites; R16.0 Hepatomegaly, not elsewhere classified; K70.11 Alcoholic hepatitis with ascites; B19.20 Unspecified viral hepatitis C without hepatic coma; F10.20 Alcohol dependence, uncomplicated; R31.0 Gross hematuria; Z72.0 Tobacco use; R59.1 Generalized enlarged lymph nodes; D69.6 Thrombocytopenia, unspecified; B95.2 Enterococcus as the cause of diseases classified elsewhere; D72.819 Decreased white blood cell count, unspecified
CPT/HCPCS: 36415; 36430; 47000; 49406; 71010-TC; 74176-TC; 74183-TC; 76705-TC; 76775-TC; 76856-TC; 76942-TC; 76998-TC; 80053; 80074; 81003; 81015; 82042; 82105; 82140; 82150; 82247; 82248; 82465; 82550; 82607; 82746; 82945; 83615; 83690; 84157; 84443; 84450; 84460; 84484; 85025; 85027; 85384; 85610; 85730; 86850; 86900; 86901; 87040; 87070; 87075; 87086; 87102; 87116; 87186; 87205; 87206; 87210; 87254; 87389; 87522; 87804; 87899; 87902; 88108; 88305-TC; 89051; 93005; 93010; 97116-GP; 97161-GP; 99285-25; A9576; C1729; C1769; P9017; P9034; P9038; Q9967

== ENCOUNTER 2017-05-03 07:52 | Emergency (ER) | payer MEDICARE ==
[2017-05-03 07:57] VITALS: TEMP 97.8; BMI 20.1
--- NOTE | 2017-05-03 08:09 | PDOC ---
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 Ramirez for evaluation of a distended abdomen.The patient states that his abdomen has been gradually becoming more distended since he had a previous large volume paracentesis on 03/25/17, with 4700 CCs of fluid removed. He reports dyspnea on exertion. He states that he is compliant with his medications. Denies fever, chills, nausea, vomiting, constipation, diarrhea. Denies abdominal pain. Allergies: none reported Social Hx: Previous alcohol abuse (stopped drinking 10/2016) PCP- Dr. Ines Ramirez [employer] Manager- Dr. Fitzpatrick <Julia Ramirez - Last Filed: 05/03/17 10:30> <Carlota Villareal - Last Filed: 05/03/17 13:24> - General Chief Complaint: Edema Stated Complaint: PCP SENT Time Seen by Provider: 05/03/17 08:01 Past History <Julia Ramirez - Last Filed: 05/03/17 10:30> - Past Medical History Liver Disease: Yes (cirrhosis, hepatitis) - Immunization History Immunization Up to Date: No - Psycho/Social/Smoking Cessation Hx Anxiety: No Suicidal Ideation: No Smoking History: Former smoker Have you smoked in the past 12 months: Yes Number of Cigarettes Smoked Daily: 2 If you are a former smoker, when did you quit?: 10/2016 Information on smoking cessation initiated: No Hx Alcohol Use: Yes Drug/Substance Use Hx: No Substance Use Type: None <Carlota Villareal - Last Filed: 05/03/17 13:24> - Past Medical History Allergies/Adverse Reactions: Allergies Allergy/AdvReac Type Severity Reaction Status Date / Time No Known Allergies Allergy Verified 05/03/17 07:58 Home Medications: Ambulatory Orders Furosemide [Lasix -] 20 mg PO DAILY #30 tablet 12/25/16 Spironolactone [Aldactone -] 100 mg PO DAILY #30 tablet 12/25/16 Diazepam 5 mg PO ASDIR PRN 03/25/17 Lactulose (Oral Use) [Cephulac -] 30 gm PO TID 03/25/17 Review of Systems - Review of Systems Able to Perform ROS?: Yes Comments:: 05/03/17 09:05 GENERAL/CONSTITUTIONAL: No: fever, chills, weakness, loss of appetite. HEAD, EYES, EARS, NOSE AND THROAT: No: change in vision, ear pain, discharge, sore throat, throat swelling. CARDIOVASCULAR: No: chest pain, lightheadedness, palpitations, syncope RESPIRATORY: +dyspnea on exertion. No: cough, wheezing, hemoptysis, stridor. GASTROINTESTINAL: +distended abdomen. No: nausea, vomiting, abdominal cramping , diarrhea, rectal bleeding, constipation. GENITOURINARY: No: dysuria, hematuria, frequency, urgency, flank pain. MUSCULOSKELETAL: No: back pain, neck pain, joint pain, muscle swelling or pain SKIN: No: lesions, pallor, rash or easy bruising. NEUROLOGIC: No: headache, vertigo, paresthesias, weakness ENDOCRINE: No: unexplained weight gain or loss HEMATOLOGIC/LYMPHATIC: No: anemia, easy bleeding, swelling nodes <Julia Ramirez - Last Filed: 05/03/17 10:30> *Physical Exam - Vital Signs Last Vital Signs Temp Pulse Resp BP Pulse Ox 97.8 F 91 H 16 96/80 97 05/03/17 07:53 05/03/17 08:47 05/03/17 08:47 05/03/17 08:47 05/03/17 08:47 - Physical Exam Comments: 05/03/17 09:05 GENERAL: The patient is in no acute distress. HEAD: Normal with no signs of trauma. EYES: PERRLA, EOMI, sclera anicteric, conjunctiva clear. ENT: Ears normal, nares patent, oropharynx clear without exudates. Moist mucous membranes. NECK: Normal range of motion, supple without lymphadenopathy, JVD, or masses. LUNGS: Breath sounds equal, clear to auscultation bilaterally. No wheezes, and no crackles. HEART:Regular rate and rhythm, normal S1 and S2 without murmur, rub or gallop. ABDOMEN: +abdominal distention. Nontender, normoactive bowel sounds. No guarding, no rebound. EXTREMITIES: No lower extremity edema. Normal range of motion. No clubbing or cyanosis. No erythema, or tenderness. NEUROLOGICAL: Cranial nerves II through XII grossly intact. Normal speech. No focal neurological deficits. MUSCULOSKELETAL: Back nontender to palpation, no CVA tenderness SKIN: Warm, Dry, normal turgor, no rashes or lesions noted. <Julia Ramirez - Last Filed: 05/03/17 10:30> - Vital Signs Last Vital Signs Temp Pulse Resp BP Pulse Ox 97.8 F 96 H 18 108/70 98 05/03/17 07:53 05/03/17 07:53 05/03/17 07:53 05/03/17 07:53 05/03/17 07:53 <Carlota Villareal - Last Filed: 05/03/17 13:24> Heart Score/ECG Review #1 ECG reviewed & interpreted by me at: 10:28 General ECG Interpretation: Sinus Rhythm, Normal Rate, Normal Intervals, No acute ischemic changes <Carlota Villareal - Last Filed: 05/03/17 13:24> ED Treatment Course - LABORATORY CBC & Chemistry Diagram: 05/03/17 08:30 05/03/17 08:30 - RADIOLOGY Radiograph Interpretation: 05/03/17 10:30 EXAM#: TYPE/EXAM: RESULT: [id number] RAD/CHEST X-RAY PORTABLE* HISTORY PROVIDED: Edema. A single frontal portable projection of the chest at 8:11 AM is submitted. The study is limited by a poor inspiratory effort. The heart size is within normal limits. No acute infiltrates or pleural effusions are present. There is tortuosity and calcification of the thoracic aorta and degenerative arthritis of the thoracic spine. IMPRESSION: No acute pathology Reported By: Jf Stahl MD 05/03/17 0833 <Julia Ramirez - Last Filed: 05/03/17 10:30> - LABORATORY CBC & Chemistry Diagram: 05/03/17 08:30 05/03/17 08:30 - RADIOLOGY Radiology Studies Ordered: Category Date Time Status CHEST X-RAY PORTABLE* [RAD] Stat Radiology 05/03/17 08:01 Ordered <Carlota Villareal - Last Filed: 05/03/17 13:24> Medical Decision Making - Medical Decision Making A portion of this note was documented by scribe services under my direction. I have reviewed the details of the note, within reason, and agree with the documentation with the following case summary and management plan written by me. Nursing documentation reviewed and incorporated into medical decision making This patient is a 71 yo M with a history of cirrhosis, HCC Who presents to the ER with a complaint of abdominal distention He has been compliant with his medications He was last here 1 month ago for a large volume paracentesis He has slowly been accumulating fluid since then No abdominal pain no fever Making urine output 05/03/17 09:31 Laboratory Tests 05/03/17 05/03/17 05/03/17 08:30 08:30 08:30 WBC 4.5 Hgb 13.9 Hct 41.8 Plt Count 161 D INR 1.36 H Sodium 137 Potassium 4.4 Chloride 103 Carbon Dioxide 24 BUN 15 D Creatinine 0.9 Random Glucose 117 H Total Bilirubin 3.1 H AST 50 H ALT 36 Alkaline Phosphatase 214 H Ammonia 05/03/17 08:30 WBC Hgb Hct Plt Count INR Sodium Potassium Chloride Carbon Dioxide BUN Creatinine Random Glucose Total Bilirubin AST ALT Alkaline Phosphatase Ammonia 73.29 H I received a call from this patient's hospice nurse She was hoping to just arrange an outpatient paracentesis for him Pt daughter in law works in Dr Ramirez's office and instructed patient to be sent to the ER for paracentesis and admission in speaking with Ms. Kanwal Macario ([phone]), she was hoping simply to get an outpatient paracentesis for this patient and NOT repeatedly come to the ER. 05/03/17 09:[address] Ramirez She agrees that pt should be doing this as an outpatient Dr arnett is speaking with her now A possible plan is to place Pleurex cathether 05/03/17 09:46 [address] will [address] a pleurex cathether today Call placed to his hospice nurse to be sure that they can manage a pleurex cathether 05/03/17 09:59 Pleurex cathether to be placed today Will discharge to home today 05/03/17 13:22 Pt s/p paracentesis Plan is for peritoneal cathether placement on Saturday05/03/17 13:24 <Carlota Villareal - Last Filed: 05/03/17 13:24> *DC/Admit/Observation/Transfer - Attestations Scribe Attestion: 05/03/17 09:05 Documentation prepared by MUSTAPHA Partida, acting as medical administrative technician for Carlota Villareal MD. <Julia Ramirez - Last Filed: 05/03/17 10:30> - Discharge Dispostion Admit: No <Carlota Villareal - Last Filed: 05/03/17 13:24> Diagnosis at time of Disposition: Ascites Qualifiers: Ascites type: malignant Qualified Code(s): R18.0 - Malignant ascites - Discharge Dispostion Disposition: HOME Condition at time of disposition: Stable - Referrals Referrals: Ines Ramirez MD [Primary Care Provider] - - Patient Instructions Printed Discharge Instructions: DI for Abdominal Paracentesis Additional Instructions: Thank you for coming in to the ER You will need to return to the ER on Saturday for placement of your Drainage cathether
[2017-05-03 08:58] LABS: BASOPHIL 0.5 % (0-2.0); EOSINOPHIL 2.9 % (0-4.5); MCH 33.4 pg (25.7-33.7); MCHC 33.3 g/dl (32.0-35.9); MEAN CELL VOLUME 100.1 fl (80-96); MEAN PLT VOLUME 9.2 fl (7.5-11.1); PLATELET COUNT 161 K/MM3 (134-434); RDW 14.2 % (11.9-15.9); WHITE BLOOD COUNT 4.5 K/mm3 (4.0-10.0)
[2017-05-03 09:13] LABS: ALBUMIN 2.5 g/dl (3.4-5.0); ALK PHOS 214 U/L (45-117); ANION GAP 10 (8-16); BILIRUBIN,TOTAL 3.1 mg/dL (0.2-1.0); CALCIUM 8.7 mg/dL (8.5-10.1); CO2 24 mmol/L (21-32); COCKROFT - GAULT 58.62; CREATININE 0.9 mg/dL (0.7-1.3); GLUCOSE,RANDOM 117 mg/dL (74-106); SGOT/AST 50 U/L (15-37); SGPT/ALT 36 U/L (12-78); TOT PROT 7.4 g/dl (6.4-8.2)
[2017-05-03 09:14] LABS: INR 1.36 (0.82-1.09); PROTHROMBIN TIME (PATIENT) 15.1 SEC (9.98-11.88)
[2017-05-03] MEDS ORDERED: ASPIRIN 81 MG CHEWABLE TABLETS PO ONE (10:22)
[2017-05-03] MEDS ORDERED: ASPIRIN 81 MG CHEWABLE TABLETS ONE (10:34)
[2017-05-03 13:27] VITALS: BP 94/62; PULSE 77
--- NOTE | 2017-05-04 15:37 | EKG ---
Test Reason : Blood Pressure : / mmHG Vent. Rate : 083 BPM Atrial Rate : 083 BPM P-R Int : 138 ms QRS Dur : 080 ms QT Int : 380 ms P-R-T Axes : 028 012 007 degrees QTc Int : 446 ms NORMAL SINUS RHYTHM NORMAL ECG WHEN COMPARED WITH ECG OF 25-MAR-2017 11:00, PREMATURE ATRIAL COMPLEXES ARE NO LONGER PRESENT Confirmed by KAUSHAL ARANGO MD ([id number]) on 05/04/2017 3:37:02 PM Referred By: Confirmed By:KAUSHAL ARANGO MD
== END 2017-05-03 14:14 | disposition home or self-care (01) ==
LOC: JER 07:52 → SUPCPDRO 07:52 → JER 14:14
DX: R18.0 Malignant ascites (principal); K74.60 Unspecified cirrhosis of liver; F10.21 Alcohol dependence, in remission; Z87.891 Personal history of nicotine dependence
CPT/HCPCS: 36415; 71010-TC; 76942-TC; 80053; 82140; 85025; 85610; 86850; 86900; 86901; 93005; 93010; 99283-25

== ENCOUNTER 2017-05-06 09:09 | Day surgery (SDC) | payer MEDICARE ==
[2017-05-03 15:10] VITALS: BMI 25.0
[2017-05-06 09:38] VITALS: TEMP 97.7
[2017-05-06 13:23] VITALS: BP 110/65; PULSE 76
== END 2017-05-06 13:25 | disposition home or self-care (01) ==
LOC: JRADIR 09:09
PROVIDERS: ATTEND Family Medicine
PROC: 0WHG33Z Insertion of Infusion Device into Peritoneal Cavity, Percutaneous Approach (ICD-10-PCS; principal; 2017-05-06)
DX: C22.0 Liver cell carcinoma (principal); K74.69 Other cirrhosis of liver; R18.8 Other ascites
CPT/HCPCS: 49418; 76098-TC; 76998-TC; 87899; C1729; C1769; C1894

== ENCOUNTER 2017-06-03 12:37 | Inpatient (IN) | payer MEDICARE ==
--- NOTE | 2017-06-03 13:52 | PDOC ---
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 Patient states that on 05/30/17, he was having his abdomen drained when the visiting nurse noticed redness around the catheter site. He tried to put bacitracin around the site to prevent infection but it only appeared to get worse. Patient states he now has some pain behind the catheter site. He denies fevers, chills, weakness, nausea, vomiting, diarrhea. Patient believes that the leaking might have either been ascites fluid or pus. He presents for evaluation of the redness around his catheter site. Past History - Travel Traveled outside of the country in the last 30 days: No Close contact w/someone who was outside of country & ill: No - Past Medical History Allergies/Adverse Reactions: Allergies Allergy/AdvReac Type Severity Reaction Status Date / Time No Known Allergies Allergy Verified 06/03/17 12:43 Home Medications: Ambulatory Orders Furosemide [Lasix -] 20 mg PO DAILY #30 tablet 12/25/16 Spironolactone [Aldactone -] 100 mg PO DAILY #30 tablet 12/25/16 Lactulose (Oral Use) [Cephulac -] 45 gm PO BID 03/25/17 Lorazepam 0.5 mg PO PRN PRN 05/06/17 Rifaximin [Xifaxan] 550 mg PO BID 05/06/17 Liver Disease: Yes (cirrhosis, hepatitis) - Surgical History Abdominal Surgery: Yes (ASCITIS DRAIN) - Immunization History Immunization Up to Date: No - Psycho/Social/Smoking Cessation Hx Anxiety: No Suicidal Ideation: No Smoking History: Never smoked Have you smoked in the past 12 months: No Number of Cigarettes Smoked Daily: 2 If you are a former smoker, when did you quit?: 10/2016 Information on smoking cessation initiated: No Hx Alcohol Use: No Drug/Substance Use Hx: No Substance Use Type: Alcohol Review of Systems - Review of Systems Able to Perform ROS?: Yes Constitutional: No: Chills, Fever, Malaise, Weakness Respiratory: No: Cough, Shortness of Breath ABD/GI: Yes: Abdominal Distended, Poor Appetite. No: Constipated, Diarrhea, Nausea, Vomiting : No: Burning, Dysuria, Frequency Musculoskeletal: No: Back Pain, Muscle Pain All Other Systems: Reviewed and Negative *Physical Exam - Vital Signs Last Vital Signs Temp Pulse Resp BP Pulse Ox 97.6 F 111 H 18 118/78 100 06/03/17 12:44 06/03/17 12:44 06/03/17 12:44 06/03/17 12:44 06/03/17 12:44 - Physical Exam General Appearance: Yes: Nourished, Appropriately Dressed, Other (Grossly distended abdomen on first appearance. Sitting in hospital bed, breathing easily , NAD, AAOx3). No: Apparent Distress Respiratory/Chest: positive: Lungs Clear, Normal Breath Sounds. negative: Respiratory Distress, Accessory Muscle Use Cardiovascular: positive: Regular Rhythm, Regular Rate, S1, S2 (present). negative: Murmur Gastrointestinal/Abdominal: positive: Decreased BS, Protuberent, Distended, Other (Pleurex catheter in place in R mid abdomen. 2cm of cellulitis circling around drain site with ). negative: Tender, Guarding, Rebound, Tenderness Integumentary: positive: Dry, Warm, Erythema (Cellulitic appearance of the R lower abdomen. No active drainage ). negative: Swelling Neurologic: positive: manager applied II-XII NML intact, Fully Oriented, Alert, Normal Mood/ Affect, Normal Response, Motor Strength 5/5 ED Treatment Course - LABORATORY CBC & Chemistry Diagram: 06/03/17 14:39 06/03/17 14:39 Medical Decision Making - Medical Decision Making 06/03/17 13:10 Patient is a 71-year-old male with history of cirrhosis, ascites, probable hepatocellular carcinoma who presents to the emergency department today complaining of redness around his drain site. On physical exam it appears that the patient has a 2 cm circular cellulitic appearance around the drain. The cellulitis also extends approximately 6 cm outwards in a circular fashion to his right lower abdomen. Given patient's probable infection as well as comorbidities will work the patient up for sepsis. Patient will be a probable admission. 1. Sepsis protocol 2. IV abx, Vanc, Zosyn 3. Gentle hydration 4. re-evaluate 06/03/17 16:20 Patient is a lactic acid of 3.0. INR slightly elevated at 1.38. CBC and CMP are not back yet. Patient states he feels better but understands that he will need to be admitted for antibiotics. 06/03/17 17:01 CBC and CMP are not back. Called the lab labs states that they never received a CBC and a CMP we'll redraw at this time. Labs are resulted Will admit to Dr. Alston. 1st call 06/03/17 17:12 Dr. Alston accepts pt for admission. *DC/Admit/Observation/Transfer Diagnosis at time of Disposition: Cirrhosis Qualifiers: Hepatic cirrhosis type: unspecified hepatic cirrhosis Ascites presence: with ascites Qualified Code(s): K74.60 - Unspecified cirrhosis of liver Cellulitis Qualifiers: Site of cellulitis: trunk Site of cellulitis of trunk: abdominal wall Qualified Code(s): L03.311 - Cellulitis of abdominal wall - Discharge Dispostion Admit: Yes
[2017-06-03] MEDS ORDERED: VANCOMYCIN 1,000 MG in DEXTROSE 5%-WATER - 250 ML IVPB ONE (14:33)
[2017-06-03] MEDS ORDERED: PIPERACILLIN/TAZOB 3.375 GM 3.375 GM in DEXTROSE 5%-WATER - 50 ML IVPB ONE (14:33)
[2017-06-03] MEDS ORDERED: VANCOMYCIN 1 GRAM (PRE-DOCKED) 250 ML IVPB ONE (15:15)
[2017-06-03 15:32] LABS: VENOUS BLOOD GAS HCO3 24.2 meq/L (19-25); VENOUS PH 7.39 (7.32-7.42)
--- NOTE | 2017-06-03 15:36 | PDOC ---
*Physical Exam - Vital Signs Last Vital Signs Temp Pulse Resp BP Pulse Ox 97.6 F 111 H 18 118/78 100 06/03/17 12:44 06/03/17 12:44 06/03/17 12:44 06/03/17 12:44 06/03/17 12:44 Heart Score/ECG Review #1 ECG reviewed & interpreted by me at: 15:25 06/03/17 15:27 NSR 90, low voltage QRS, T wave flat V3-V6, III, avF, no std/georges, QTC 457 msec ED Treatment Course - LABORATORY CBC & Chemistry Diagram: 06/03/17 14:39 06/03/17 14:39 Medical Decision Making - Medical Decision Making 06/03/17 15:36 Pt seen by the Advanced Practice Provider under my direct supervision Pt interviewed and examined Ancillary studies reviewed I agree with plan as outlined by the Advanced Practice Provider NANDINI Gaona Vital Signs Temp Pulse Resp BP Pulse Ox 97.6 F 111 H 18 118/78 100 06/03/17 12:44 06/03/17 12:44 06/03/17 12:44 06/03/17 12:44 06/03/17 12:44 71 year old male with past medical history liver cirrhosis, likely hepatocellular carcinoma, prior alcohol abuse presents with draining paracentesis to and erythema the skin. Patient is noted some increasing erythema for the last several days and some increased drainage. Denies fevers or chills. Denies nausea or vomiting. GENERAL: Awake, alert, and fully oriented, in no acute distress. HEAD: No signs of trauma EYES: PERRLA, EOMI, sclera anicteric, conjunctiva clear ENT: Auricles normal inspection, hearing grossly normal, nares patent, oropharynx clear without exudates. NECK: Normal ROM, supple, no lymphadenopathy, JVD, or masses LUNGS: Breath sounds equal, clear to auscultation bilaterally. No wheezes, and no crackles HEART: Regular rate and rhythm, normal S1 and S2, no murmurs, rubs or gallops ABDOMEN: Soft, nontender, normoactive bowel sounds. No guarding, no rebound. No masses. +Distended abdomen. Abdomen with surrounding erythema but NO fluctuance around the paracentesis drain. Mild leakage around the tube EXTREMITIES: Normal range of motion, no edema. No clubbing or cyanosis. No cords, erythema, or tenderness NEUROLOGICAL: Cranial nerves II through XII grossly intact. Normal speech, normal gait SKIN: Warm, Dry, normal turgor, no rashes or lesions noted. The patient appears to have cellulitis near the site. Adult sepsis protocol initiated. Empiric antibiotics. Patient should be admitted to the hospital for further evaluation. *DC/Admit/Observation/Transfer Diagnosis at time of Disposition: Cirrhosis, Cellulitis - Discharge Dispostion Disposition: VNS/HOME HEALTH CARE - Prescriptions
[2017-06-03 15:44] LABS: INR 1.36 (0.82-1.09)
[2017-06-03 15:57] LABS: TROPONIN I < 0.02 ng/ml (0.00-0.05)
[2017-06-03] MEDS ORDERED: SODIUM CHLORIDE 500 ML IV STA (16:16)
[2017-06-03] MEDS ORDERED: PIPERACILLIN/TAZOB 3.375 GM 50 ML IVPB ONE (18:03)
[2017-06-03 18:19] LABS: BASOPHIL 0.9 % (0-2.0); EOSINOPHIL 2.3 % (0-4.5); MCH 33.8 pg (25.7-33.7); MCHC 33.7 g/dl (32.0-35.9); MEAN CELL VOLUME 100.3 fl (80-96); MEAN PLT VOLUME 8.6 fl (7.5-11.1); NEUTROPHILS 67.7 % (42.8-82.8); PLATELET COUNT 169 K/MM3 (134-434); RDW 14.9 % (11.9-15.9); WHITE BLOOD COUNT 4.5 K/mm3 (4.0-10.0)
[2017-06-03 18:50] LABS: ALBUMIN 2.2 g/dl (3.4-5.0); ANION GAP 8 (8-16); BILIRUBIN,TOTAL 3.5 mg/dL (0.2-1.0); CALCIUM 8.4 mg/dL (8.5-10.1); CO2 25 mmol/L (21-32); CREATININE 0.8 mg/dL (0.7-1.3); GLUCOSE,RANDOM 103 mg/dL (74-106); SGOT/AST 38 U/L (15-37); SGPT/ALT 29 U/L (12-78); TOT PROT 7.1 g/dl (6.4-8.2)
[2017-06-03 18:53] LABS: ALK PHOS 200 U/L (45-117); TROPONIN I < 0.02 ng/ml (0.00-0.05)
--- NOTE | 2017-06-03 21:41 | HP ---
Admitting History and Physical - Primary Care Physician PCP: Rhona Alston - Admission Chief Complaint: erythema of skin History of Present Illness: 71 year old male with past medical history liver cirrhosis, likely hepatocellular carcinoma, prior alcohol abuse presents with draining paracentesis to and erythema the skin. Patient is noted some increasing erythema for the last several days and some increased drainage. Denies fevers or chills. Denies nausea or vomiting. 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 Home Medications - Allergies Allergies/Adverse Reactions: Allergies Allergy/AdvReac Type Severity Reaction Status Date / Time No Known Allergies Allergy Verified 06/03/17 12:43 - Home Medications Home Medications: Ambulatory Orders Furosemide [Lasix -] 20 mg PO DAILY #30 tablet 12/25/16 Spironolactone [Aldactone -] 100 mg PO DAILY #30 tablet 12/25/16 Lactulose (Oral Use) [Cephulac -] 45 gm PO BID 03/25/17 Lorazepam 0.5 mg PO PRN PRN 05/06/17 Rifaximin [Xifaxan] 550 mg PO BID 05/06/17 Family Disease History - Family Disease History Family Disease History: Other: Father (ASHD,CAD), Mother (ASHD,CAD) Physical Examination Vital Signs: Vital Signs Temperature 97.6 F 06/03/17 12:44 Pulse Rate 111 H 06/03/17 12:44 Respiratory Rate 18 06/03/17 12:44 Blood Pressure 118/78 06/03/17 12:44 O2 Sat by Pulse Oximetry (%) 100 06/03/17 12:44 Constitutional: Yes: No Distress HENT: Yes: Atraumatic Neck: Yes: Supple Cardiovascular: Yes: Regular Rate and Rhythm Respiratory: Yes: CTA Bilaterally Gastrointestinal: Yes: Normal Bowel Sounds, Ascites, Distention, Other ( erythema /cellulitis around catheter) Extremities: Yes: WNL Edema: LLE: Trace, RLE: Trace Neurological: Yes: Alert, Oriented Imaging - Results X-ray: Report Reviewed Problem List - Problems (1) Cellulitis Assessment/Plan: ON IV ABX Code(s): L03.90 - CELLULITIS, UNSPECIFIED Qualifiers: Site of cellulitis: trunk Site of cellulitis of trunk: abdominal wall Qualified Code(s): L03.311 - Cellulitis of abdominal wall (2) Cirrhosis Assessment/Plan: DRAIN IN PLACE Code(s): K74.60 - UNSPECIFIED CIRRHOSIS OF LIVER Qualifiers: Hepatic cirrhosis type: unspecified hepatic cirrhosis Ascites presence : with ascites Qualified Code(s): K74.60 - Unspecified cirrhosis of liver (3) Hepatitis C Code(s): B19.20 - UNSPECIFIED VIRAL HEPATITIS C WITHOUT HEPATIC COMA Assessment/Plan Laboratory Tests 06/03/17 06/03/17 06/03/17 14:39 14:39 14:39 WBC 4.5 RBC 3.96 L Hgb 13.4 Hct 39.7 MCV 100.3 H MCH 33.8 H MCHC 33.7 RDW 14.9 Plt Count 169 MPV 8.6 Neutrophils % 67.7 Lymphocytes % 15.6 D Monocytes % 13.5 H Eosinophils % 2.3 Basophils % 0.9 INR 1.36 H PTT (Actin FS) 34.0 VBG pH POC VBG pCO2 POC VBG pO2 Mixed VBG HCO3 Sodium 133 L Potassium 4.6 Chloride 100 Carbon Dioxide 25 Anion Gap 8 BUN 12 Creatinine 0.8 Creat Clearance w eGFR > 60 Random Glucose 103 Lactic Acid Calcium 8.4 L Total Bilirubin 3.5 H AST 38 H D ALT 29 Alkaline Phosphatase 200 H Creatine Kinase 46 Troponin I < 0.02 Total Protein 7.1 Albumin 2.2 L Urine Color Urine Appearance Urine pH Ur Specific [place] Urine Protein Urine Glucose (UA) Urine Ketones Urine Blood Urine Nitrite Urine Bilirubin Urine Urobilinogen Ur Leukocyte Esterase 06/03/17 06/03/17 06/03/17 14:39 14:39 15:30 WBC RBC Hgb Hct MCV MCH MCHC RDW Plt Count MPV Neutrophils % Lymphocytes % Monocytes % Eosinophils % Basophils % INR PTT (Actin FS) VBG pH 7.39 POC VBG pCO2 40.6 POC VBG pO2 24.7 L Mixed VBG HCO3 24.2 Sodium Potassium Chloride Carbon Dioxide Anion Gap BUN Creatinine Creat Clearance w eGFR Random Glucose Lactic Acid 3.0 H* Calcium Total Bilirubin AST ALT Alkaline Phosphatase Creatine Kinase 48 Troponin I < 0.02 Total Protein Albumin Urine Color Urine Appearance Urine pH Ur Specific [place] Urine Protein Urine Glucose (UA) Urine Ketones Urine Blood Urine Nitrite Urine Bilirubin Urine Urobilinogen Ur Leukocyte Esterase 06/03/17 06/04/17 16:55 06:22 WBC RBC Hgb Hct MCV MCH MCHC RDW Plt Count MPV Neutrophils % Lymphocytes % Monocytes % Eosinophils % Basophils % INR PTT (Actin FS) VBG pH POC VBG pCO2 POC VBG pO2 Mixed VBG HCO3 Sodium Potassium Chloride Carbon Dioxide Anion Gap BUN Creatinine Creat Clearance w eGFR Random Glucose Lactic Acid 2.9 H* Calcium Total Bilirubin AST ALT Alkaline Phosphatase Creatine Kinase Troponin I Total Protein Albumin Urine Color Unique Urine Appearance Clear Urine pH 5.0 Ur Specific [place] 1.025 Urine Protein Negative Urine Glucose (UA) Negative Urine Ketones Trace H Urine Blood Negative Urine Nitrite Negative Urine Bilirubin Negative Urine Urobilinogen 2.0 e.u/dl Ur Leukocyte Esterase Negative Active Medications Generic Name Dose Route Start Last Admin Trade Name Freq PRN Reason Stop Dose Admin Furosemide 20 mg 06/04/17 10:00 06/06/17 09:23 Lasix - PO 20 mg DAILY ADRIAN Administration Piperacillin Sod/Tazobactam Sod 50 mls @ 100 mls/hr 06/04/17 16:15 06/06/17 09: 22 Zosyn 3.375gm Ivpb (Pre-Docked) IVPB 100 mls/hr Q8H-IV ADRIAN Administration Protocol Lactulose 40 gm 06/03/17 22:00 06/06/17 09:24 Cephulac (Oral Use) PO 40 gm BID ADRIAN Administration Lorazepam 0.5 mg 06/06/17 00:00 Ativan - PO DAILY PRN ANXIETY Rifaximin 550 mg 06/03/17 22:00 06/06/17 09:23 Xifaxan - PO 550 mg BID ADRIAN Administration Spironolactone 100 mg 06/04/17 10:00 06/06/17 09:23 Aldactone - PO 100 mg DAILY ADRIAN Administration
[2017-06-03] MEDS: LACTULOSE 20 GM/30 ML UDC (FOR ORAL USE ONLY) PO SCH (23:29)
[2017-06-03] MEDS: RIFAXIMIN 550 MG TABLET (UD) PO SCH (23:29)
[2017-06-04] VITALS: BMI 23.8
[2017-06-04 10:12] LABS: URINE APPEARANCE CLEAR; URINE BILIRUBIN NEGATIVE (NEGATIVE); URINE BLOOD NEGATIVE (NEGATIVE); URINE COLOR AMBER; URINE GLUCOSE (UA) NEGATIVE (NEGATIVE); URINE KETONE TRACE (NEGATIVE); URINE LEUK ESTERASE NEGATIVE (NEGATIVE); URINE NITRITE NEGATIVE (NEGATIVE); URINE PROTEIN NEGATIVE (NEGATIVE); URINE UROBILINOGEN 2.0 E.U/dl E.U./dl (0.2-1.0)
[2017-06-04] MEDS: FUROSEMIDE 20 MG TABLET (FP) PO SCH (10:21)
[2017-06-04] MEDS: SPIRONOLACTONE 25 MG TABLET (FP) PO SCH (10:21)
[2017-06-04] MEDS: RIFAXIMIN 550 MG TABLET (UD) PO SCH ×2 (10:21→21:53)
[2017-06-04] MEDS: LACTULOSE 20 GM/30 ML UDC (FOR ORAL USE ONLY) PO SCH ×2 (10:21→21:53)
--- NOTE | 2017-06-04 14:46 | CONSULT ---
Consult Consult Specialty:: infectious diseases Reason for Consultation:: cellulitits of the abd wall - History of Present Illness Chief Complaint: pain and swelling of the abd wall on the rt side History of Present Illness: 71 year old male with past medical history liver cirrhosis, likely hepatocellular carcinoma, prior alcohol abuse presents with swelling and redness of the skin around the draining site of the skin patient also c/o of pain currently patient is feeling well denies fever,vomiting nausea - History Source History Provided By: Patient, Medical Record Limitations to Obtaining History: Language Barrier - Past Medical History Gastrointestinal: Yes: Ascites Hepatobiliary: Yes: Cirrhosis, Hepatitis C Renal/: Yes: Hematuria Musculoskeletal: Yes: Chronic low back pain - Alcohol/Substance Use Hx Alcohol Use: No History of Substance Use: reports: None - Smoking History Smoking history: Never smoked Have you smoked in the past 12 months: No Aproximately how many cigarettes per day: 2 If you are a former smoker, when did you quit?: 10/2016 - Social History Usual Living Arrangement: With Spouse 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;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 Home Medications - Allergies Allergies/Adverse Reactions: Allergies Allergy/AdvReac Type Severity Reaction Status Date / Time No Known Allergies Allergy Verified 06/03/17 12:43 - Home Medications Home Medications: Ambulatory Orders Furosemide [Lasix -] 20 mg PO DAILY #30 tablet 12/25/16 Spironolactone [Aldactone -] 100 mg PO DAILY #30 tablet 12/25/16 Lactulose (Oral Use) [Cephulac -] 45 gm PO BID 03/25/17 Lorazepam 0.5 mg PO PRN PRN 05/06/17 Rifaximin [Xifaxan] 550 mg PO BID 05/06/17 Family Disease History - Family Disease History Family Disease History: Other: Father (ASHD,CAD), Mother (ASHD,CAD) Review of Systems - Review of Systems Constitutional: reports: No Symptoms Eyes: reports: No Symptoms HENT: reports: No Symptoms Neck: reports: No Symptoms Cardiovascular: reports: No Symptoms Respiratory: reports: No Symptoms Gastrointestinal: reports: Abdominal Pain, Other (celulitis of the abd wall) Musculoskeletal: reports: No Symptoms Integumentary: reports: Change in Color, Erythema Neurological: reports: No Symptoms Endocrine: reports: No Symptoms Hematology/Lymphatic: reports: No Symptoms Psychiatric: reports: No Symptoms Physical Exam Vital Signs: Vital Signs Temperature 98.2 F 06/04/17 13:45 Pulse Rate 101 H 06/04/17 13:45 Respiratory Rate 18 06/04/17 13:45 Blood Pressure 127/78 06/04/17 10:20 O2 Sat by Pulse Oximetry (%) 98 06/04/17 09:00 Constitutional: Yes: Thin, Other (malnourished) Eyes: Yes: Conjunctiva Clear Cardiovascular: Yes: Regular Rate and Rhythm Respiratory: Yes: Regular, CTA Bilaterally Gastrointestinal: Yes: Ascites, Distention, Other (cellulitits of the abd wall around the tube) Musculoskeletal: Yes: WNL Extremities: Yes: WNL Neurological: Yes: Alert, Oriented Psychiatric: Yes: Alert, Oriented Imaging - Results Chest X-ray: Report Reviewed, Image Reviewed Assessment/Plan Problem List - Problems (1) Cellulitis Code(s): L03.90 - CELLULITIS, UNSPECIFIED Qualifiers: Site of cellulitis: trunk Site of cellulitis of trunk: abdominal wall Qualified Code(s): L03.311 - Cellulitis of abdominal wall (2) Cirrhosis Code(s): K74.60 - UNSPECIFIED CIRRHOSIS OF LIVER Qualifiers: Hepatic cirrhosis type: unspecified hepatic cirrhosis Ascites presence : with ascites Qualified Code(s): K74.60 - Unspecified cirrhosis of liver (3) Hepatitis C Code(s): B19.20 - UNSPECIFIED VIRAL HEPATITIS C WITHOUT HEPATIC COMA plan will start on abx rest continue current mgmt patient received vanco and zosyn
[2017-06-04] MEDS: PIPERACILLIN/TAZOB 3.375 GM 50 ML IVPB SCH (16:35)
--- NOTE | 2017-06-04 18:46 | PN ---
Progress Note, Physician History of Present Illness: NO COMPLAINTS - Current Medication List Current Medications: Active Medications Furosemide (Lasix -) 20 mg PO DAILY COUNTS [facility]CLUDE 234 BEDS AT THE [facility] Last Admin: 06/04/17 10:21 Dose: 20 mg Piperacillin Sod/Tazobactam Sod (Zosyn 3.375gm Ivpb (Pre-Docked)) 50 mls @ 100 mls/hr IVPB Q8H-IV ADRIAN PRN Reason: Protocol Last Admin: 06/04/17 16:35 Dose: 100 mls/hr Lactulose (Cephulac (Oral Use)) 40 gm PO BID COUNTS INCLUDE 234 BEDS AT THE [facility] Last Admin: 06/04/17 10:21 Dose: 40 gm Lorazepam (Ativan -) 0.5 mg PO PRN PRN PRN Reason: ANXIETY Rifaximin (Xifaxan -) 550 mg PO BID COUNTS INCLUDE 234 BEDS AT THE [facility] Last Admin: 06/04/17 10:21 Dose: 550 mg Spironolactone (Aldactone -) 100 mg PO DAILY COUNTS INCLUDE 234 BEDS AT THE [facility] Last Admin: 06/04/17 10:21 Dose: 100 mg - Objective Vital Signs: Vital Signs Temperature 98.2 F 06/04/17 13:45 Pulse Rate 101 H 06/04/17 13:45 Respiratory Rate 18 06/04/17 13:45 Blood Pressure 127/78 06/04/17 10:20 O2 Sat by Pulse Oximetry (%) 98 06/04/17 09:00 HENT: Yes: Atraumatic Neck: Yes: Supple Cardiovascular: Yes: Regular Rate and Rhythm Respiratory: Yes: CTA Bilaterally Gastrointestinal: Yes: Normal Bowel Sounds, Ascites, Distention Extremities: Yes: WNL Neurological: Yes: Alert, Oriented Labs: INR, PTT INR 1.36 (0.82-1.09) H 06/03/17 14:39 Problem List - Problems (1) Cellulitis Assessment/Plan: ON IV ABX Code(s): L03.90 - CELLULITIS, UNSPECIFIED Qualifiers: Site of cellulitis: trunk Site of cellulitis of trunk: abdominal wall Qualified Code(s): L03.311 - Cellulitis of abdominal wall (2) Cirrhosis Code(s): K74.60 - UNSPECIFIED CIRRHOSIS OF LIVER Qualifiers: Hepatic cirrhosis type: unspecified hepatic cirrhosis Ascites presence : with ascites Qualified Code(s): K74.60 - Unspecified cirrhosis of liver (3) Hepatitis C Code(s): B19.20 - UNSPECIFIED VIRAL HEPATITIS C WITHOUT HEPATIC COMA (4) Alcohol abuse Code(s): F10.10 - ALCOHOL ABUSE, UNCOMPLICATED (5) Ascites Assessment/Plan: NEED TO DRAIN FLUID PT HAS A CATHETER Code(s): R18.8 - OTHER ASCITES Qualifiers: Ascites type: malignant Qualified Code(s): R18.0 - Malignant ascites Assessment/Plan Laboratory Tests 06/03/17 06/03/17 06/03/17 14:39 14:39 14:39 WBC 4.5 RBC 3.96 L Hgb 13.4 Hct 39.7 MCV 100.3 H MCH 33.8 H MCHC 33.7 RDW 14.9 Plt Count 169 MPV 8.6 Neutrophils % 67.7 Lymphocytes % 15.6 D Monocytes % 13.5 H Eosinophils % 2.3 Basophils % 0.9 INR 1.36 H PTT (Actin FS) 34.0 VBG pH POC VBG pCO2 POC VBG pO2 Mixed VBG HCO3 Sodium 133 L Potassium 4.6 Chloride 100 Carbon Dioxide 25 Anion Gap 8 BUN 12 Creatinine 0.8 Creat Clearance w eGFR > 60 Random Glucose 103 Lactic Acid Calcium 8.4 L Total Bilirubin 3.5 H AST 38 H D ALT 29 Alkaline Phosphatase 200 H Creatine Kinase 46 Troponin I < 0.02 Total Protein 7.1 Albumin 2.2 L 06/03/17 06/03/17 06/03/17 14:39 14:39 15:30 WBC RBC Hgb Hct MCV MCH MCHC RDW Plt Count MPV Neutrophils % Lymphocytes % Monocytes % Eosinophils % Basophils % INR PTT (Actin FS) VBG pH 7.39 POC VBG pCO2 40.6 POC VBG pO2 24.7 L Mixed VBG HCO3 24.2 Sodium Potassium Chloride Carbon Dioxide Anion Gap BUN Creatinine Creat Clearance w eGFR Random Glucose Lactic Acid 3.0 H* Calcium Total Bilirubin AST ALT Alkaline Phosphatase Creatine Kinase 48 Troponin I < 0.02 Total Protein Albumin Active Medications Generic Name Dose Route Start Last Admin Trade Name Freq PRN Reason Stop Dose Admin Furosemide 20 mg 06/04/17 10:00 Lasix - PO DAILY ADRIAN Lactulose 40 gm 06/03/17 22:00 Cephulac (Oral Use) PO BID ADRIAN Lorazepam 0.5 mg 06/03/17 21:41 Ativan - PO PRN PRN ANXIETY Rifaximin 550 mg 06/03/17 22:00 Xifaxan - PO BID COUNTS INCLUDE 234 BEDS AT THE [facility] Spironolactone 100 mg 06/04/17 10:00 Aldactone - PO DAILY ADRIAN
[2017-06-05] MEDS: PIPERACILLIN/TAZOB 3.375 GM 50 ML IVPB SCH ×3 (01:50→18:01)
[2017-06-05] MEDS ORDERED: PT OWN MED DRAWER 7, Y5N ONE (07:04)
[2017-06-05] MEDS: LACTULOSE 20 GM/30 ML UDC (FOR ORAL USE ONLY) PO SCH ×2 (09:54→21:09)
[2017-06-05] MEDS: RIFAXIMIN 550 MG TABLET (UD) PO SCH ×2 (09:54→21:09)
[2017-06-05] MEDS: SPIRONOLACTONE 25 MG TABLET (FP) PO SCH (09:54)
[2017-06-05] MEDS: FUROSEMIDE 20 MG TABLET (FP) PO SCH (09:54)
--- NOTE | 2017-06-05 13:01 | PN ---
Progress Note, Physician History of Present Illness: patient stable drainage tube changed erythema much better no leak - Current Medication List Current Medications: Active Medications Furosemide (Lasix -) 20 mg PO DAILY [facility] Last Admin: 06/05/17 09:54 Dose: 20 mg Piperacillin Sod/Tazobactam Sod (Zosyn 3.375gm Ivpb (Pre-Docked)) 50 mls @ 100 mls/hr IVPB Q8H-IV ADRIAN PRN Reason: Protocol Last Admin: 06/05/17 09:55 Dose: 100 mls/hr Lactulose (Cephulac (Oral Use)) 40 gm PO BID [facility] Last Admin: 06/05/17 09:54 Dose: 40 gm Lorazepam (Ativan -) 0.5 mg PO PRN PRN PRN Reason: ANXIETY Rifaximin (Xifaxan -) 550 mg PO BID [facility] Last Admin: 06/05/17 09:54 Dose: 550 mg Spironolactone (Aldactone -) 100 mg PO DAILY [facility] Last Admin: 06/05/17 09:54 Dose: 100 mg - Objective Vital Signs: Vital Signs Temperature 97.5 F L 06/05/17 08:55 Pulse Rate 94 H 06/05/17 08:55 Respiratory Rate 18 06/05/17 09:00 Blood Pressure 120/75 06/05/17 08:55 O2 Sat by Pulse Oximetry (%) 98 06/05/17 09:00 Constitutional: Yes: No Distress, Calm, Thin Cardiovascular: Yes: Regular Rate and Rhythm Respiratory: Yes: Regular, CTA Bilaterally Gastrointestinal: Yes: Soft, Ascites, Distention, Other Musculoskeletal: Yes: WNL Extremities: Yes: WNL Neurological: Yes: Alert, Oriented Psychiatric: Yes: Alert, Oriented Labs: INR, PTT INR 1.36 (0.82-1.09) H 06/03/17 14:39 Assessment/Plan Problem List - Problems (1) Cellulitis Code(s): L03.90 - CELLULITIS, UNSPECIFIED Qualifiers: Site of cellulitis: trunk Site of cellulitis of trunk: abdominal wall Qualified Code(s): L03.311 - Cellulitis of abdominal wall (2) Cirrhosis Code(s): K74.60 - UNSPECIFIED CIRRHOSIS OF LIVER Qualifiers: Hepatic cirrhosis type: unspecified hepatic cirrhosis Ascites presence : with ascites Qualified Code(s): K74.60 - Unspecified cirrhosis of liver (3) Hepatitis C Code(s): B19.20 - UNSPECIFIED VIRAL HEPATITIS C WITHOUT HEPATIC COMA plan continue abx improving
--- NOTE | 2017-06-05 13:03 | EKG ---
Test Reason : Blood Pressure : / mmHG Vent. Rate : 090 BPM Atrial Rate : 090 BPM P-R Int : 132 ms QRS Dur : 078 ms QT Int : 374 ms P-R-T Axes : 049 026 012 degrees QTc Int : 457 ms NORMAL SINUS RHYTHM LOW VOLTAGE QRS CANNOT RULE OUT ANTERIOR INFARCT , AGE UNDETERMINED ABNORMAL ECG WHEN COMPARED WITH ECG OF 03-MAY-2017 08:51, NO SIGNIFICANT CHANGE WAS FOUND Confirmed by ALONZO ROBLES MD ([id number]) on 06/05/2017 1:03:00 PM Referred By: Confirmed By:ALONZO ROBLES MD
--- NOTE | 2017-06-05 17:06 | PN ---
Progress Note, Physician History of Present Illness: NO COMPLAINTS - Current Medication List Current Medications: Active Medications Furosemide (Lasix -) 20 mg PO DAILY COUNT [facility]CLUDES [facility] Last Admin: 06/05/17 09:54 Dose: 20 mg Piperacillin Sod/Tazobactam Sod (Zosyn 3.375gm Ivpb (Pre-Docked)) 50 mls @ 100 mls/hr IVPB Q8H-IV ADRIAN PRN Reason: Protocol Last Admin: 06/05/17 09:55 Dose: 100 mls/hr Lactulose (Cephulac (Oral Use)) 40 gm PO BID COUNT [facility]CLUDES [facility] Last Admin: 06/05/17 09:54 Dose: 40 gm Lorazepam (Ativan -) 0.5 mg PO DAILY PRN PRN Reason: ANXIETY Rifaximin (Xifaxan -) 550 mg PO BID COUNT [facility]CLUDES [facility] Last Admin: 06/05/17 09:54 Dose: 550 mg Spironolactone (Aldactone -) 100 mg PO DAILY COUNT [facility]CLUDES [facility] Last Admin: 06/05/17 09:54 Dose: 100 mg - Objective Vital Signs: Vital Signs Temperature 97.9 F 06/05/17 13:54 Pulse Rate 97 H 06/05/17 13:54 Respiratory Rate 20 06/05/17 13:54 Blood Pressure 120/75 06/05/17 08:55 O2 Sat by Pulse Oximetry (%) 98 06/05/17 09:00 HENT: Yes: Atraumatic Neck: Yes: Supple Cardiovascular: Yes: Regular Rate and Rhythm Respiratory: Yes: CTA Bilaterally Gastrointestinal: Yes: Normal Bowel Sounds, Other (CELLULITIS IMPROVING) Extremities: Yes: WNL Neurological: Yes: Alert, Oriented Labs: INR, PTT INR 1.36 (0.82-1.09) H 06/03/17 14:39 Problem List - Problems (1) Cellulitis Assessment/Plan: ON IV ABX Code(s): L03.90 - CELLULITIS, UNSPECIFIED Qualifiers: Site of cellulitis: trunk Site of cellulitis of trunk: abdominal wall Qualified Code(s): L03.311 - Cellulitis of abdominal wall (2) Cirrhosis Code(s): K74.60 - UNSPECIFIED CIRRHOSIS OF LIVER Qualifiers: Hepatic cirrhosis type: unspecified hepatic cirrhosis Ascites presence : with ascites Qualified Code(s): K74.60 - Unspecified cirrhosis of liver (3) Hepatitis C Code(s): B19.20 - UNSPECIFIED VIRAL HEPATITIS C WITHOUT HEPATIC COMA (4) Alcohol abuse Code(s): F10.10 - ALCOHOL ABUSE, UNCOMPLICATED (5) Ascites Assessment/Plan: NEED TO DRAIN FLUID PT HAS A CATHETER Code(s): R18.8 - OTHER ASCITES Qualifiers: Ascites type: malignant Qualified Code(s): R18.0 - Malignant ascites
--- NOTE | 2017-06-05 20:04 | CON.GI ---
Consult Consult Specialty:: GI Referred by:: Dr Alston Reason for Consultation:: infected catheter site - History of Present Illness Chief Complaint: infection - Past Medical History Gastrointestinal: Yes: Ascites Hepatobiliary: Yes: Cirrhosis, Hepatitis C Renal/: Yes: Hematuria Musculoskeletal: Yes: Chronic low back pain - Alcohol/Substance Use Hx Alcohol Use: No History of Substance Use: reports: None - Smoking History Smoking history: Never smoked Have you smoked in the past 12 months: No Aproximately how many cigarettes per day: 2 If you are a former smoker, when did you quit?: 10/2016 - Social History Usual Living Arrangement: With Spouse 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;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 Home Medications - Allergies Allergies/Adverse Reactions: Allergies Allergy/AdvReac Type Severity Reaction Status Date / Time No Known Allergies Allergy Verified 06/03/17 12:43 - Home Medications Home Medications: Ambulatory Orders Furosemide [Lasix -] 20 mg PO DAILY #30 tablet 12/25/16 Spironolactone [Aldactone -] 100 mg PO DAILY #30 tablet 12/25/16 Lactulose (Oral Use) [Cephulac -] 45 gm PO BID 03/25/17 Lorazepam 0.5 mg PO PRN PRN 05/06/17 Rifaximin [Xifaxan] 550 mg PO BID 05/06/17 Family Disease History - Family Disease History Family Disease History: Other: Father (ASHD,CAD), Mother (ASHD,CAD) Physical Exam-GI Vital Signs: Vital Signs Temperature 97.9 F 06/05/17 13:54 Pulse Rate 97 H 06/05/17 13:54 Respiratory Rate 20 06/05/17 13:54 Blood Pressure 120/75 06/05/17 08:55 O2 Sat by Pulse Oximetry (%) 98 06/05/17 09:00 Labs: INR, PTT INR 1.36 (0.82-1.09) H 06/03/17 14:39
--- NOTE | 2017-06-05 20:10 | CON.GI ---
Consult Consult Specialty:: GI Referred by:: Dr Alston Reason for Consultation:: infection around intra-abdominal catheter site - History of Present Illness Chief Complaint: Patient with pain and drainage around catheter site History of Present Illness: 71 M with h/o cirrhosis, hep C, Likely HCC based on MRI done Nov, 2016, ETOH abuse, states 3 days of erythema, and prurulent drainage from intra-abdominal catheter placed 1 month ago. - History Source History Provided By: Family Member, Medical Record Limitations to Obtaining History: No Limitations - Past Medical History Gastrointestinal: Yes: Ascites Hepatobiliary: Yes: Cirrhosis, Hepatitis C Renal/: Yes: Hematuria Musculoskeletal: Yes: Chronic low back pain - Alcohol/Substance Use Hx Alcohol Use: No History of Substance Use: reports: None - Smoking History Smoking history: Never smoked Have you smoked in the past 12 months: No Aproximately how many cigarettes per day: 2 If you are a former smoker, when did you quit?: 10/2016 - Social History Usual Living Arrangement: With Spouse 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;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 Medications - Allergies Allergies/Adverse Reactions: Allergies Allergy/AdvReac Type Severity Reaction Status Date / Time No Known Allergies Allergy Verified 06/03/17 12:43 - Home Medications Home Medications: Ambulatory Orders Furosemide [Lasix -] 20 mg PO DAILY #30 tablet 12/25/16 Spironolactone [Aldactone -] 100 mg PO DAILY #30 tablet 12/25/16 Lactulose (Oral Use) [Cephulac -] 45 gm PO BID 03/25/17 Lorazepam 0.5 mg PO PRN PRN 05/06/17 Rifaximin [Xifaxan] 550 mg PO BID 05/06/17 Family Disease History - Family Disease History Family Disease History: Other: Father (ASHD,CAD), Mother (ASHD,CAD) Physical Exam-GI Vital Signs: Vital Signs Temperature 97.9 F 06/05/17 13:54 Pulse Rate 97 H 06/05/17 13:54 Respiratory Rate 20 06/05/17 13:54 Blood Pressure 120/75 06/05/17 08:55 O2 Sat by Pulse Oximetry (%) 98 06/05/17 09:00 Constitutional: Yes: Thin HENT: Yes: Normocephalic Cardiovascular: Yes: Regular Rate and Rhythm Respiratory: Yes: CTA Bilaterally Gastrointestinal Inspection: Yes: Ascites ...Auscultate: Yes: Normoactive Bowel Sounds ...Palpate: Yes: Soft (softly distended) ...Percussion: Yes: Fluid Wave Labs: INR, PTT INR 1.36 (0.82-1.09) H 06/03/17 14:39 Hepatic Panel Total Bilirubin 3.5 mg/dL (0.2-1.0) H 06/03/17 14:39 AST 38 U/L (15-37) H D 06/03/17 14:39 ALT 29 U/L (12-78) 06/03/17 14:39 Alkaline Phosphatase 200 U/L (45-117) H 06/03/17 14:39 Albumin 2.2 g/dl (3.4-5.0) L 06/03/17 14:39 CBC, BMP 06/03/17 14:39 06/03/17 14:39 Imaging - Results MRI: Report Reviewed ((12/10/16) Likely HCC) Assessment/Plan Patient with ESLD with ascites now with infection around the intra-abdominal catheter used to paracentese the patient. Rec ON Zosyn. For paracentesis tomorrow-send fluid for CBC, gram stain, culture, albumin If infection persists or if SBP, recommend pulling catheter.
[2017-06-06] MEDS ORDERED: LORazepam 0.5 MG TABLET PO PRN
[2017-06-06] MEDS: PIPERACILLIN/TAZOB 3.375 GM 50 ML IVPB SCH ×3 (01:47→18:08)
[2017-06-06] MEDS: RIFAXIMIN 550 MG TABLET (UD) PO SCH ×2 (09:23→21:54)
[2017-06-06] MEDS: SPIRONOLACTONE 25 MG TABLET (FP) PO SCH (09:23)
[2017-06-06] MEDS: FUROSEMIDE 20 MG TABLET (FP) PO SCH (09:23)
[2017-06-06] MEDS: LACTULOSE 20 GM/30 ML UDC (FOR ORAL USE ONLY) PO SCH ×2 (09:24→21:54)
--- NOTE | 2017-06-06 14:10 | PN ---
Progress Note, Physician History of Present Illness: patient stable no new issues plan is to work up of the drainage fluid - Current Medication List Current Medications: Active Medications Furosemide (Lasix -) 20 mg PO DAILY [facility] Last Admin: 06/06/17 09:23 Dose: 20 mg Piperacillin Sod/Tazobactam Sod (Zosyn 3.375gm Ivpb (Pre-Docked)) 50 mls @ 100 mls/hr IVPB Q8H-IV ADRIAN PRN Reason: Protocol Last Admin: 06/06/17 09:22 Dose: 100 mls/hr Lactulose (Cephulac (Oral Use)) 40 gm PO BID [facility] Last Admin: 06/06/17 09:24 Dose: 40 gm Lorazepam (Ativan -) 0.5 mg PO DAILY PRN PRN Reason: ANXIETY Rifaximin (Xifaxan -) 550 mg PO BID [facility] Last Admin: 06/06/17 09:23 Dose: 550 mg Spironolactone (Aldactone -) 100 mg PO DAILY [facility] Last Admin: 06/06/17 09:23 Dose: 100 mg - Objective Vital Signs: Vital Signs Temperature 97.7 F 06/06/17 09:22 Pulse Rate 84 06/06/17 09:22 Respiratory Rate 20 06/06/17 09:22 Blood Pressure 108/77 06/06/17 09:22 O2 Sat by Pulse Oximetry (%) 98 06/05/17 21:00 Constitutional: Yes: No Distress, Calm Cardiovascular: Yes: Regular Rate and Rhythm Respiratory: Yes: Regular, CTA Bilaterally Gastrointestinal: Yes: Ascites, Distention, Other Musculoskeletal: Yes: WNL Extremities: Yes: WNL Wound/Incision: Yes: Clean/Dry, Other Neurological: Yes: Alert, Oriented Psychiatric: Yes: Alert, Oriented Labs: INR, PTT INR 1.36 (0.82-1.09) H 06/03/17 14:39 Assessment/Plan Problem List - Problems (1) Cellulitis Code(s): L03.90 - CELLULITIS, UNSPECIFIED Qualifiers: Site of cellulitis: trunk Site of cellulitis of trunk: abdominal wall Qualified Code(s): L03.311 - Cellulitis of abdominal wall (2) Cirrhosis Code(s): K74.60 - UNSPECIFIED CIRRHOSIS OF LIVER Qualifiers: Hepatic cirrhosis type: unspecified hepatic cirrhosis Ascites presence : with ascites Qualified Code(s): K74.60 - Unspecified cirrhosis of liver (3) Hepatitis C Code(s): B19.20 - UNSPECIFIED VIRAL HEPATITIS C WITHOUT HEPATIC COMA dressing removed no drainage noted cellulitits much better plan patient improving cellulitits better patient getting fluid studies today once we have the results we will change abx to oral will d/w primary
--- NOTE | 2017-06-06 16:32 | PN ---
Progress Note, Physician History of Present Illness: NO COMPLAINTS - Current Medication List Current Medications: Active Medications Furosemide (Lasix -) 20 mg PO DAILY [facility] Last Admin: 06/06/17 09:23 Dose: 20 mg Piperacillin Sod/Tazobactam Sod (Zosyn 3.375gm Ivpb (Pre-Docked)) 50 mls @ 100 mls/hr IVPB Q8H-IV ADRIAN PRN Reason: Protocol Last Admin: 06/06/17 09:22 Dose: 100 mls/hr Lactulose (Cephulac (Oral Use)) 40 gm PO BID [facility] Last Admin: 06/06/17 09:24 Dose: 40 gm Lorazepam (Ativan -) 0.5 mg PO DAILY PRN PRN Reason: ANXIETY Rifaximin (Xifaxan -) 550 mg PO BID [facility] Last Admin: 06/06/17 09:23 Dose: 550 mg Spironolactone (Aldactone -) 100 mg PO DAILY [facility] Last Admin: 06/06/17 09:23 Dose: 100 mg - Objective Vital Signs: Vital Signs Temperature 98.1 F 06/06/17 14:00 Pulse Rate 129 H 06/06/17 14:00 Respiratory Rate 22 06/06/17 14:00 Blood Pressure 109/84 06/06/17 14:00 O2 Sat by Pulse Oximetry (%) 98 06/05/17 21:00 Constitutional: Yes: No Distress HENT: Yes: Atraumatic Neck: Yes: Supple Cardiovascular: Yes: Regular Rate and Rhythm Respiratory: Yes: CTA Bilaterally Gastrointestinal: Yes: Normal Bowel Sounds, Ascites, Other (CELLULITIS) Extremities: Yes: WNL Neurological: Yes: Alert, Oriented Labs: INR, PTT INR 1.36 (0.82-1.09) H 06/03/17 14:39 Problem List - Problems (1) Cellulitis Assessment/Plan: ON IV ABX Code(s): L03.90 - CELLULITIS, UNSPECIFIED Qualifiers: Site of cellulitis: trunk Site of cellulitis of trunk: abdominal wall Qualified Code(s): L03.311 - Cellulitis of abdominal wall (2) Cirrhosis Assessment/Plan: DRAIN IN PLACE Code(s): K74.60 - UNSPECIFIED CIRRHOSIS OF LIVER Qualifiers: Hepatic cirrhosis type: unspecified hepatic cirrhosis Ascites presence : with ascites Qualified Code(s): K74.60 - Unspecified cirrhosis of liver (3) Hepatitis C Code(s): B19.20 - UNSPECIFIED VIRAL HEPATITIS C WITHOUT HEPATIC COMA (4) Alcohol abuse Code(s): F10.10 - ALCOHOL ABUSE, UNCOMPLICATED (5) Ascites Assessment/Plan: NEED TO DRAIN FLUID PT HAS A CATHETER Code(s): R18.8 - OTHER ASCITES Qualifiers: Ascites type: malignant Qualified Code(s): R18.0 - Malignant ascites
[2017-06-06 17:26] LABS: GLUCOSE,BODY FLUID 124 mg/dl
[2017-06-06 18:20] LABS: BODY FLUID RBC 210 /mm3
[2017-06-06 20:01] LABS: BODY FLUID LYMPHS 66 %; BODY FLUID NEUTROPHILS 2 %
[2017-06-07] MEDS: PIPERACILLIN/TAZOB 3.375 GM 50 ML IVPB SCH ×2 (01:35→10:04)
[2017-06-07] MEDS ORDERED: PT OWN MED DRAWER 7, Y5N ONE (09:40)
[2017-06-07] MEDS: LACTULOSE 20 GM/30 ML UDC (FOR ORAL USE ONLY) PO SCH ×2 (10:06→21:59)
[2017-06-07] MEDS: SPIRONOLACTONE 25 MG TABLET (FP) PO SCH (10:06)
[2017-06-07] MEDS: FUROSEMIDE 20 MG TABLET (FP) PO SCH (10:06)
[2017-06-07] MEDS: RIFAXIMIN 550 MG TABLET (UD) PO SCH ×2 (10:06→21:59)
--- NOTE | 2017-06-07 14:00 | PN ---
Progress Note, Physician History of Present Illness: patient stable doing well no leakage gm stain of the fluid pending other result noted - Current Medication List Current Medications: Active Medications Furosemide (Lasix -) 20 mg PO DAILY [facility] Last Admin: 06/07/17 10:06 Dose: 20 mg Lactulose (Cephulac (Oral Use)) 40 gm PO BID [facility] Last Admin: 06/07/17 10:06 Dose: 40 gm Lorazepam (Ativan -) 0.5 mg PO DAILY PRN PRN Reason: ANXIETY Rifaximin (Xifaxan -) 550 mg PO BID [facility] Last Admin: 06/07/17 10:06 Dose: 550 mg Spironolactone (Aldactone -) 100 mg PO DAILY [facility] Last Admin: 06/07/17 10:06 Dose: 100 mg - Objective Vital Signs: Vital Signs Temperature 98.2 F 06/07/17 10:00 Pulse Rate 88 06/07/17 10:00 Respiratory Rate 20 06/07/17 10:00 Blood Pressure 108/72 06/07/17 10:00 O2 Sat by Pulse Oximetry (%) 98 06/05/17 21:00 Constitutional: Yes: No Distress, Calm Cardiovascular: Yes: Regular Rate and Rhythm Respiratory: Yes: Regular, CTA Bilaterally Gastrointestinal: Yes: Ascites, Other (draiange tube in place) Musculoskeletal: Yes: WNL Extremities: Yes: WNL Neurological: Yes: Alert, Oriented Psychiatric: Yes: Alert, Oriented Labs: INR, PTT INR 1.36 (0.82-1.09) H 06/03/17 14:39 Assessment/Plan Problem List - Problems (1) Cellulitis Code(s): L03.90 - CELLULITIS, UNSPECIFIED Qualifiers: Site of cellulitis: trunk Site of cellulitis of trunk: abdominal wall Qualified Code(s): L03.311 - Cellulitis of abdominal wall (2) Cirrhosis Code(s): K74.60 - UNSPECIFIED CIRRHOSIS OF LIVER Qualifiers: Hepatic cirrhosis type: unspecified hepatic cirrhosis Ascites presence : with ascites Qualified Code(s): K74.60 - Unspecified cirrhosis of liver (3) Hepatitis C Code(s): B19.20 - UNSPECIFIED VIRAL HEPATITIS C WITHOUT HEPATIC COMA dressing removed no drainage noted cellulitits much better plan patient improving changed abx to oral can continue the abx for 3 more days rest as per primary augmentin 500mg twice a day for 3 more days
[2017-06-07] MEDS: AMOX TR/POT CLAV 500MG/125MG TABLETS (FP) PO SCH (17:26)
--- NOTE | 2017-06-07 19:21 | DS ---
Physical Examination Vital Signs: Vital Signs Temperature 97.9 F 06/07/17 18:53 Pulse Rate 84 06/07/17 18:53 Respiratory Rate 18 06/07/17 18:53 Blood Pressure 99/66 06/07/17 18:53 O2 Sat by Pulse Oximetry (%) 98 06/05/17 21:00 Constitutional: Yes: No Distress HENT: Yes: Atraumatic Neck: Yes: Supple Cardiovascular: Yes: Regular Rate and Rhythm Respiratory: Yes: CTA Bilaterally Gastrointestinal: Yes: Normal Bowel Sounds Extremities: Yes: WNL Neurological: Yes: Alert, Oriented Discharge Summary Reason For Visit: ASCITES/CELLULITIS/HEPATIC CIRROHOSIS Current Active Problems Cellulitis (Acute) Cirrhosis (Acute) - Instructions Referrals: Bunny Turner MD [Primary Care Provider] - - Home Medications Comprehensive Discharge Medication List: Ambulatory Orders Furosemide [Lasix -] 20 mg PO DAILY #30 tablet 12/25/16 Spironolactone [Aldactone -] 100 mg PO DAILY #30 tablet 12/25/16 Lactulose (Oral Use) [Cephulac -] 45 gm PO BID 03/25/17 Lorazepam 0.5 mg PO PRN PRN 05/06/17 Rifaximin [Xifaxan -] 550 mg PO BID 05/06/17 Amox-Tr/K Cl [Augmentin 500-125mg Tablet -] 1 tab PO BID@0800,1730 #6 tablet [facility]
[2017-06-08] MEDS: SPIRONOLACTONE 25 MG TABLET (FP) PO SCH (08:46)
[2017-06-08] MEDS: FUROSEMIDE 20 MG TABLET (FP) PO SCH (08:46)
[2017-06-08] MEDS: LACTULOSE 20 GM/30 ML UDC (FOR ORAL USE ONLY) PO SCH (08:46)
[2017-06-08] MEDS: RIFAXIMIN 550 MG TABLET (UD) PO SCH (08:46)
[2017-06-08] MEDS: AMOX TR/POT CLAV 500MG/125MG TABLETS (FP) PO SCH (08:46)
[2017-06-08 09:19] VITALS: BP 114/78; PULSE 98; TEMP 97.8
== END 2017-06-08 11:17 | disposition home health service (06) | DRG 920 ==
LOC: JER 12:37 → JERBED 19:52 → J6S 23:21
PROVIDERS: ADMIT Internal Medicine; ATTEND Internal Medicine
DX: T85.79XA Infection and inflammatory reaction due to other internal prosthetic devices, implants and grafts, initial encounter (principal); L03.311 Cellulitis of abdominal wall; C22.0 Liver cell carcinoma; R18.0 Malignant ascites; Y84.4 Aspiration of fluid as the cause of abnormal reaction of the patient, or of later complication, without mention of misadventure at the time of the procedure; Y92.9 Unspecified place or not applicable; K74.60 Unspecified cirrhosis of liver; Z87.891 Personal history of nicotine dependence; B19.20 Unspecified viral hepatitis C without hepatic coma; G89.29 Other chronic pain; M54.5 Low back pain; F10.10 Alcohol abuse, uncomplicated; T85.9XXA Unspecified complication of internal prosthetic device, implant and graft, initial encounter
CPT/HCPCS: 36415; 71010-TC; 80053; 81003; 82105; 82150; 82550; 82803; 82945; 83605; 83615; 84157; 84484; 85025; 85610; 85730; 87040; 87070; 87075; 87086; 87205; 89050; 93005; 93010; 99285-25